=== PATIENT | male | born 1945 | race Caucasian/White ===

== ENCOUNTER 2020-01-08 14:56 | Inpatient (IN) | payer MEDICARE, OTHER ==
[2020-01-08] MEDS ORDERED: NS 0.9% 1000 ML** 1,000 ML IV ONE (15:00)
[2020-01-08] MEDS ORDERED: Cefepime 1 GM in Dextrose(*) 1 GM/50 ML BAG IV ONE (15:00)
--- NOTE | 2020-01-08 15:03 | ED ---
Respiratory - HPI Summary HPI Summary: This patient is a 74 y/o male presenting to [facility] via EMS from [facility] for worsening SOB and AMS. EMS reports patient fell approximately 2 weeks ago and sustained a right sided rib fracture. EMS states patient was then discharged to [facility] for rehab and 2 days ago patient was found to have pneumonia. Per EMS patient is normally alert and oriented x3 and today patient became minimally responsive and hypoxic. EMS reports patient is able to respond and open his eyes to his name. PMHx: COPD, hypernatremia. Medications reviewed. Allergies noted. HPI IS LIMITED DUE TO LEVEL 5 CAVEAT - AMS - History of Current Complaint Stated Complaint: PNEUMONIA PER EMS Hx Obtained From: EMS Hx From Patient Unobtainable Due To: Altered Mental Status Onset/Duration: Lasting Days, Still Present, Worse Since - today Current Severity: Moderate Aggravating Factor(s): Nothing Alleviating Factor(s): Nothing Associated Signs and Symptoms: SOB - Allergy/Home Medications Home Medications: Home Medications Acetaminophen [Tylenol Extra Strength] 1,000 mg PO TID PRN 01/08/20 [History Confirmed 01/08/20] Albuterol HFA INHALER* [Ventolin HFA Inhaler*] 2 puff INH Q4H PRN 01/08/20 [ History Confirmed 01/08/20] Amoxicillin/Clavulanate TAB* [Augmentin TAB 875*] 875 mg PO BID 01/08/20 [ History Confirmed 01/08/20] Azithromycin TAB* [Zithromax TAB (Z-MAKAYLA) 250 mg #6 tabs] 250 mg PO DAILY [History Confirmed 01/08/20] Baclofen TAB* [Lioresal TAB*] 10 mg PO TID PRN 01/08/20 [History Confirmed 01/07] Calcium Carbonate CHEW TAB* [Tums*] 1,000 mg PO QID 01/08/20 [History Confirmed 01/08/20] Guaifenesin/Dextromethorphan [Mucinex Dm ER 600-30 mg Tablet] 1 tab PO Q12HR [History Confirmed 01/08/20] Ipratropium/Albuterol Sulfate [Iprat-Albut 0.5-3(2.5) mg/3 ml] 3 ml INH QID [History Confirmed 01/08/20] Lidocaine [Lidoderm] 2 each TOPICAL QAM 01/08/20 [History Confirmed 01/08/20] Melatonin (NF) 3 mg PO BEDTIME 01/08/20 [History Confirmed 01/08/20] Metoclopramide TAB* [Reglan TAB*] 5 mg PO ACHS 01/08/20 [History Confirmed 01/07] Metolazone TAB* [Zaroxolyn TAB*] 2.5 mg PO DAILY 01/08/20 [History Confirmed ] Misoprostol TAB* [Cytotec TAB*] 200 mcg PO QID 01/08/20 [History Confirmed 01/07] Multivitamins/Minerals TAB* [Theragran/minerals TAB*] 1 tab PO DAILY 01/08/20 [ History Confirmed 01/08/20] Omeprazole CAP (NF) [Prilosec CAP* 20 MG] 20 mg PO BID 01/08/20 [History Confirmed 01/08/20] Oxycodone TAB(NF) [Oxycodone HCl 10 MG] 10 mg PO Q6H PRN 01/08/20 [History Confirmed 01/08/20] Sennosides/Docusate Sodium [Senna Plus 8.6-50 mg Tablet] 2 tab PO DAILY [History Confirmed 01/08/20] Sucralfate TAB* [Carafate*] 1 gm PO ACHS 01/08/20 [History Confirmed 01/08/20] Tamsulosin CAP* [Flomax CAP*] 0.8 mg PO QPM 01/08/20 [History Confirmed 01/08/20 ] Umeclidinium 62.5 MDI(NF) [Incruse ELLIPTA MDI (NF)] 1 puff INH DAILY 01/08/20 [ History Confirmed 01/08/20] predniSONE 10 mg TAB [Deltasone 10 MG TAB*] 30 mg PO DAILY 01/08/20 [History Confirmed 01/08/20] PMH/Surg Hx/FS Hx/Imm Hx Endocrine/Hematology History: Reports: Other Endocrine/Hematological Disorders - hypernatremia Respiratory History: Reports: Hx Chronic Obstructive Pulmonary Disease (COPD) - Family History Known Family History: Positive: Unknown - due to level 5 caveat - AMS Family History: Mother with colorectal cancer. - Social History Alcohol Use: Unknown due to level 5 caveat - AMS Smoking Status (MU): Unknown if Ever Smoked - due to level 5 caveat - AMS Review of Systems - ROS Summary Review of Systems Summary: ROS IS LIMITED DUE TO LEVEL 5 CAVEAT - AMS Negative: Fever Respiratory: Other - POSITIVE: hypoxic Positive: Shortness Of Breath Neurological/Mental Status: Other - POSITIVE: minimally responsive, AMS All Other Systems Reviewed And Are Negative: No Physical Exam - Summary Physical Exam Summary: Constitutional: Well-developed, Well-nourished. (-) Distressed Skin: Warm, Dry HENT: Normocephalic; Atraumatic Eyes: Conjunctiva normal Neck: Musculoskeletal ROM normal neck. (-) JVD, (-) Stridor, (-) Tracheal deviation Cardio: Rhythm regular, rate normal, Heart sounds normal; Intact distal pulses; The pedal pulses are 2+ and symmetric. Radial pulses are 2+ and symmetric. (-) Murmur Pulmonary/Chest wall: Coarse breath sounds throughout. Tachypneic with supraclavicular retractions. Abd: Soft, (-) tenderness, (-) Distension, (-) Guarding, (-) Rebound Musculoskeletal: (-) Edema Lymph: (-) Cervical adenopathy Neuro: Patient is able to respond to his name and answers some questions periodically but nothing outside that. Psych: Deferred Triage Information Reviewed: Yes Vital Signs On Initial Exam: Initial Vitals Temp Pulse Resp BP Pulse Ox 98.6 F 97 24 142/96 97 01/08/20 15:08 01/08/20 15:08 01/08/20 15:08 01/08/20 15:08 01/08/20 15:08 Vital Signs Reviewed: Yes Completion Of Physical Exam Limited Due To: Level 5 - AMS Procedures - Sedation Patient Received Moderate/Deep Sedation with Procedure: No - Intubation Time of Intubation: 16:02 - Using glidescope inserted 8.0 ET tube Intubation Method: orotracheal Tube Size (cm): 8.0 Breath Sounds after Intubation: equal Intubation Complications: no complications Post Intubation Xray: Yes - post color change visualized on CO2 meter, confirmed with chest XR. Progress/Xray Impression: 20mg Etomidate,Rocuronium 100mg used for ASI. Sedated with Propofol after Diagnostics - Laboratory Result Diagrams: 01/08/20 15:00 01/08/20 15:00 Lab Statement: Any lab studies that have been ordered have been reviewed, and results considered in the medical decision making process. - Radiology Chest XR Radiology Interpretation Completed By: Radiologist Summary of Radiographic Findings: IMPRESSION: 1. Displaced right second through sixth rib fractures. No large pneumothorax. 2. No focal airspace opacification. 3. Cardiomegaly. Dr. Dorado has reviewed this report. Chest XR s/p intubation Radiology Interpretation Completed By: Radiologist Summary of Radiographic Findings: IMPRESSION: 1. The endotracheal tube terminates at the zoe. Recommend pulling back approximately 3 cm. 2. Right rib fractures as above. No large pneumothorax. Discussed with ordering provider at 4:51 PM on January 08, 2020. - EKG 15:37 Cardiac Rate: Tachycardia - at 100 bpm EKG Rhythm: Sinus Tachycardia Summary of EKG Findings: EKG at 1537 shows sinus tachycardia at a rate of 100 bpm. No obvious ischemic changes. This EKG was interpreted and reviewed by ED physician. Re-Evaluation - Re-Evaluation First Eval Re-Evaluation Time: 15:22 Change: Worse Comment: Patient is desatting on 4L O2 via nasal cannula. Patient is now on oxymask 10L. We will start vapotherm. Second Eval Re-Evaluation Time: 15:47 Comment: Dr. Figueroa, endless track vehicle supervisor, at bedside. Third Eval Re-Evaluation Time: 15:51 Comment: PCO2 comes back 102. Will intubate. Disposition - Course Course Of Treatment: Patient is here for worsening respiratory and mental status. Patient was diagnosed with pneumonia 2 days ago after suffering rib fractures recently. Upon arrival, patient was on 4 L nasal cannula. Patient could respond to his name but did not answer most questions. Patient desatted at one point and was placed on an oxy mask. Patient had a chest x-ray performed which showed multiple rib fractures with no pneumothorax or obvious pneumonia. Patient's ABG returned with a PCO2 of 102. The decision at this point intubate patient due to his mental status and hypercapnia. Patient was successfully intubated. Patient received cefepime empirically. Patient was admitted to the ICU - Diagnoses Provider Diagnoses: Pneumonia, Hypoxemia, Altered mental status, Hypernatremia, COPD (chronic obstructive pulmonary disease), Fracture of multiple ribs of right side - Physician Notifications Discussed Care Of Patient With: Hung Figueroa Time Discussed With Above Provider: 15:26 Instructed by Provider To: Other - Discussed the case with Dr. Figueroa, endless track vehicle supervisor, who will come see patient. [1549] Dr. Figueroa accepts the patient to the ICU. - Critical Care Time Critical Care Time: 30-74 min - 52 minutes outside of procedures Discharge ED - Sign-Out/Discharge Documenting (check all that apply): Patient Departure - Admit to ICU All imaging exams completed and their final reports reviewed: Yes - Discharge Plan Condition: Critical Disposition: ADMITTED TO [facility] - Billing Disposition and Condition Condition: CRITICAL Disposition: Admitted to [facility] - Attestation Statements Document Initiated by Juan Ramon: Yes Documenting Scribe: Heather Flood Provider For Whom Juan Ramon is Documenting (Include Credential): Vishal Dorado MD Scribe Attestation: Heather Ma, scribed for Vishal Dorado MD on 01/08/20 at 1705. Scribe Documentation Reviewed: Yes Provider Attestation: The documentation as recorded by the Heather bowen accurately reflects the service I personally performed and the decisions made by , Vishal Dorado MD Status of Scribe Document: Viewed
[2020-01-08 15:13] LABS: ABS Lymphocytes 0.7 10^3/ul (1.0-4.8); ABS Monocytes 0.5 10^3/ul (0-0.8); ABS Neutrophils 14.6 10^3/ul (1.5-7.7); Hematocrit 50 % (42-52); Hemoglobin 16.1 g/dL (14.0-18.0); Lymphocyte % 4.3 %; Mean Corpuscular HGB Conc 32 g/dL (31-36); Mean Corpuscular Hemoglobin 32 pg (27-31); Mean Corpuscular Volume 100 fL (80-94); Platelet Count 294 10^3/uL (150-450); Red Blood Count 5.03 10^6 /uL (4.18-5.48); Red Cell Distribution Width 14 % (10-15); White Blood Count 15.7 10^3/uL (3.5-10.8)
[2020-01-08 15:46] LABS: Urine Appearance Cloudy; Urine Bilirubin Negative (Negative); Urine Blood 1+ (Negative); Urine Color Amber; Urine Glucose Negative (Negative); Urine Ketones Trace (Negative); Urine Nitrite Negative (Negative); Urine Protein 2+(100 mg/dL) (Negative); Urine Specific Gravity 1.029 (1.010-1.030); Urine Urobilinogen Negative (Negative)
[2020-01-08 15:48] LABS: Urine Bacteria Absent (Absent); Urine Red Blood Cell Absent (Absent); Urine White Blood Cell Absent (Absent)
[2020-01-08] MEDS ORDERED: Rocuronium* 10 MG/ML VIAL IV ONE (15:52)
[2020-01-08] MEDS ORDERED: Propofol* 100 ML IV ONE ×2 (15:52→17:56)
[2020-01-08] MEDS ORDERED: Etomidate* 2 MG/ML 10 ML VIAL IV ONE (15:52)
[2020-01-08 16:02] LABS: ALT 34 U/L (7-52); AST 40 U/L (13-39); Albumin 3.6 g/dL (3.2-5.2); Albumin/Globulin Ratio 1.2 (1-3); Alkaline Phosphatase 160 U/L (34-104); Anion Gap 6 mmol/L (2-11); BUN/Creatinine Ratio 39.8 (8-20); Blood Urea Nitrogen 35 mg/dL (6-24); C Reactive Protein 24.54 mg/L (<8.01); CO2 Carbon Dioxide 38 mmol/L (22-32); Calcium 8.9 mg/dL (8.6-10.3); Chloride 101 mmol/L (101-111); EGFR Non-African American 85.1 (>60); Globulin 3.1 g/dL (2-4); Glucose 160 mg/dL (70-100); Potassium 4.7 mmol/L (3.5-5.0); Sodium 145 mmol/L (135-145); Total Protein 6.7 g/dL (6.4-8.9)
[2020-01-08 16:06] LABS: Troponin I 0.06 ng/mL (<0.03)
[2020-01-08] MEDS ORDERED: Albuterol/Ipratropium NEB.SOL* Albuterol 2.5 MG/Ipratropium 0.5 MG 3 ML INH PRN (16:16)
[2020-01-08] MEDS: methylPREDNISolone SOD 40 MG* 1 ML VIAL IV SCH (17:22)
[2020-01-08] MEDS: Chlorhexidine MOUTHWASH 0.12%* 15 ML UDC TOPICAL SCH ×3 (17:22→23:51)
[2020-01-08] MEDS: Enoxaparin(*) 40 MG/0.4 ML SYR SUBCUT SCH (17:22)
--- NOTE | 2020-01-08 17:47 | HP ---
H&P (Free Text) History and Physical: HISTORY AND PHYSICAL ADMISSION DATE: 01/08/20 ATTENDING PHYSICIAN: Dr. Hung Figueroa CHIEF COMPLAINT: AMS, worsening SOB LEVEL 5 CAVEAT D/T MENTAL STATUS HPI: 74M with only known medical history of COPD, hypernatremia, BPH, constipation, and frequent falls, was sent from [facility] on 01/08/20 for worsening SOB and altered mental status. All information is obtained from chart since patient is unresponsive. According to his chart, he was recently discharged from [facility] on 01/02 after a fall with subsequent multiple rib fractures. He was discharged to [facility] for subacute rehab and was doing well until early AM on 01/07 when he complained that he did not feel well. He was diagnosed with PNA on 01/05. His mental status started declining around 10am and was unresponsive by 1pm. He was given 1L bolus at rehab and sent to ED. Upon arrival in ED, he was noticed to be unresponsive, VBG showed CO2 102 and initial impression of chest xray showed possibly LLL infiltrate. He was then intubated and received another 1L fluid bolus. ROS: ROS unable to be obtained secondary to altered mental status PMHx: 1. COPD 2. hypernatremia 3. BPH 4. Constipation 5. Frequent falls PSHx: unable to attain Family History: unable to attain Social History: unable to attain Allergies: unable to attain Home Medications: Acetaminophen [Tylenol Extra Strength] 1,000 mg PO TID PRN 01/08/20 [History Confirmed 01/08/20] Albuterol HFA INHALER* [Ventolin HFA Inhaler*] 2 puff INH Q4H PRN 01/08/20 [ History Confirmed 01/08/20] Amoxicillin/Clavulanate TAB* [Augmentin TAB 875*] 875 mg PO BID 01/08/20 [ History Confirmed 01/08/20] Azithromycin TAB* [Zithromax TAB (Z-MAKAYLA) 250 mg #6 tabs] 250 mg PO DAILY [History Confirmed 01/08/20] Baclofen TAB* [Lioresal TAB*] 10 mg PO TID PRN 01/08/20 [History Confirmed 01/07] Calcium Carbonate CHEW TAB* [Tums*] 1,000 mg PO QID 01/08/20 [History Confirmed 01/08/20] Guaifenesin/Dextromethorphan [Mucinex Dm ER 600-30 mg Tablet] 1 tab PO Q12HR [History Confirmed 01/08/20] Ipratropium/Albuterol Sulfate [Iprat-Albut 0.5-3(2.5) mg/3 ml] 3 ml INH QID [History Confirmed 01/08/20] Lidocaine [Lidoderm] 2 each TOPICAL QAM 01/08/20 [History Confirmed 01/08/20] Melatonin (NF) 3 mg PO BEDTIME 01/08/20 [History Confirmed 01/08/20] Metoclopramide TAB* [Reglan TAB*] 5 mg PO ACHS 01/08/20 [History Confirmed 01/07] Metolazone TAB* [Zaroxolyn TAB*] 2.5 mg PO DAILY 01/08/20 [History Confirmed ] Misoprostol TAB* [Cytotec TAB*] 200 mcg PO QID 01/08/20 [History Confirmed 01/07] Multivitamins/Minerals TAB* [Theragran/minerals TAB*] 1 tab PO DAILY 01/08/20 [ History Confirmed 01/08/20] Omeprazole CAP (NF) [Prilosec CAP* 20 MG] 20 mg PO BID 01/08/20 [History Confirmed 01/08/20] Oxycodone TAB(NF) [Oxycodone HCl 10 MG] 10 mg PO Q6H PRN 01/08/20 [History Confirmed 01/08/20] Sennosides/Docusate Sodium [Senna Plus 8.6-50 mg Tablet] 2 tab PO DAILY [History Confirmed 01/08/20] Sucralfate TAB* [Carafate*] 1 gm PO ACHS 01/08/20 [History Confirmed 01/08/20] Tamsulosin CAP* [Flomax CAP*] 0.8 mg PO QPM 01/08/20 [History Confirmed 01/08/20 ] Umeclidinium 62.5 MDI(NF) [Incruse ELLIPTA MDI (NF)] 1 puff INH DAILY 01/08/20 [ History Confirmed 01/08/20] predniSONE 10 mg TAB [Deltasone 10 MG TAB*] 30 mg PO DAILY 01/08/20 [History Confirmed 01/08/20] Vitals: Vital Signs 01/08/20 01/08/20 01/08/20 14:56 15:08 15:27 Temperature 98.6 F Pulse Rate 98 97 100 Respiratory 24 Rate Blood Pressure 142/96 142/96 (mmHg) O2 Sat by Pulse 99 97 99 Oximetry 01/08/20 01/08/20 01/08/20 15:44 15:59 16:00 Temperature 98.2 F 99.9 F 99.9 F Pulse Rate 98 98 97 Respiratory 32 Rate Blood Pressure 133/87 130/88 (mmHg) O2 Sat by Pulse 98 98 98 Oximetry 01/08/20 16:19 Temperature 100.0 F Pulse Rate 97 Respiratory Rate Blood Pressure 136/96 (mmHg) O2 Sat by Pulse 100 Oximetry Intake and Output Last 24 Hours 01/06/20 01/07/20 01/08/20 01/09/20 06:59 06:59 06:59 06:59 Weight 200 lb Vent: Infusions: fluid bolus Current Medications: Albuterol/Ipratropium (Duoneb (Albuterol 2.5 Mg/Ipratropium 0.5 Mg)) 1 neb INH Q6H PRN PRN Reason: SOB/WHEEZING Enoxaparin Sodium (Lovenox(*)) 40 mg SUBCUT Q24H HAILE Propofol (Diprivan*) 100 mls @ 2.722 mls/hr IV .PER PROTOCOL ONE; Protocol Stop: 01/10/20 04:36 Cefepime HCl (Maxipime 1 Gm In Dextrose Duplex (*)) 1 gm in 50 mls @ 100 mls/ hr IV Q12H HAILE Methylprednisolone Sodium Succinate (Solu-Medrol 40 Mg) 40 mg IV Q12H HAILE Pantoprazole Sodium (Protonix Iv*) 40 mg IV DAILY HAILE Physical Exam: Constitutional: unresponsive, no distress, no diaphoresis Head: normocephalic, atraumatic Eyes: no pallor, no icterus ENT: moist mucous membranes Neck: soft, supple, no jvd, no stridor CVS: normal rate, regular, no murmur Chest/Resp: bilateral air entry, diminished throughout but unable to accurately assess d/t poor quality isolation stethescope, no rhales, no wheeze, no rhonchi , no acc muscle use. Copious amounts of thick white sputum Abdomen/GI: soft, nontender, nondistended, BS+ Ext/Msk: warm, pulses+, no edema Skin: intact, warm Neuro: unresponsive, moving all extremities Labs: Laboratory Results - last 24 hr 01/08/20 01/08/20 01/08/20 13:30 15:00 15:00 WBC 15.7 H RBC 5.03 Hgb 16.1 Hct 50 MCV 100 H MCH 32 H MCHC 32 RDW 14 Plt Count 294 MPV 8.0 Neut % (Auto) 92.6 Lymph % (Auto) 4.3 [place] % (Auto) 2.9 Eos % (Auto) 0.0 Baso % (Auto) 0.2 Absolute Neuts (auto) 14.6 H Absolute Lymphs (auto) 0.7 L Absolute Monos (auto) 0.5 Absolute Eos (auto) 0.0 Absolute Basos (auto) 0.0 Absolute Nucleated RBC 0.0 Nucleated RBC % 0.0 VBG pH VBG pCO2 VBG pO2 VBG HCO3 VBG O2 Saturation VBG Base Excess Sodium Potassium Chloride Carbon Dioxide Anion Gap BUN Creatinine Est GFR ( Amer) Est GFR (Non-Af Amer) BUN/Creatinine Ratio Glucose Lactic Acid 0.9 Calcium Total Bilirubin AST ALT Alkaline Phosphatase Troponin I C-Reactive Protein B-Natriuretic Peptide Total Protein Albumin Globulin Albumin/Globulin Ratio Urine Color Ana Urine Appearance Cloudy Urine pH 5.0 Ur Specific [place] 1.029 Urine Protein 2+(100 mg/dl) A Urine Ketones Trace A Urine Blood 1+ A Urine Nitrate Negative Urine Bilirubin Negative Urine Urobilinogen Negative Ur Leukocyte Esterase Negative Urine WBC (Auto) Absent Urine RBC (Auto) Absent Urine Bacteria Absent Urine Glucose Negative 01/08/20 01/08/20 01/08/20 15:00 15:00 15:15 WBC RBC Hgb Hct MCV MCH MCHC RDW Plt Count MPV Neut % (Auto) Lymph % (Auto) [place] % (Auto) Eos % (Auto) Baso % (Auto) Absolute Neuts (auto) Absolute Lymphs (auto) Absolute Monos (auto) Absolute Eos (auto) Absolute Basos (auto) Absolute Nucleated RBC Nucleated RBC % VBG pH 7.24 L VBG pCO2 102 H VBG pO2 42.0 VBG HCO3 33.4 H VBG O2 Saturation 72.0 VBG Base Excess 11.8 H Sodium 145 Potassium 4.7 Chloride 101 Carbon Dioxide 38 H Anion Gap 6 BUN 35 H Creatinine 0.88 Est GFR ( Amer) 103.0 Est GFR (Non-Af Amer) 85.1 BUN/Creatinine Ratio 39.8 H Glucose 160 H Lactic Acid Calcium 8.9 Total Bilirubin 0.80 AST 40 H ALT 34 Alkaline Phosphatase 160 H Troponin I 0.06 H* C-Reactive Protein 24.54 H B-Natriuretic Peptide > 1300 H Total Protein 6.7 Albumin 3.6 Globulin 3.1 Albumin/Globulin Ratio 1.2 Urine Color Urine Appearance Urine pH Ur Specific [place] Urine Protein Urine Ketones Urine Blood Urine Nitrate Urine Bilirubin Urine Urobilinogen Ur Leukocyte Esterase Urine WBC (Auto) Urine RBC (Auto) Urine Bacteria Urine Glucose Imaging: Reports for chest xrays are unavailable at this time Assessment: 74M with only known medical history of COPD, hypernatremia, BPH, constipation, and frequent falls, was sent from [facility] on 01/08/20 for worsening SOB and altered mental status. All information is obtained from chart since patient is unresponsive. According to his chart, he was recently discharged from [facility] on 01/02 after a fall with subsequent multiple rib fractures. He was discharged to [facility] for subacute rehab and was doing well until early AM on 01/07 when he complained that he did not feel well. He was diagnosed with PNA on 01/05. His mental status started declining around 10am and was unresponsive by 1pm. He was given 1L bolus at rehab and sent to ED. Upon arrival in ED, he was noticed to be unresponsive, VBG showed CO2 102 and initial impression of chest xray showed possibly LLL infiltrate. He was then intubated and received another 1L fluid bolus. - Acute hypoxic and hypercapnic respiratory failure - Pneumonia - COPD - Sepsis Plan: Neuro- - Unresponsive: acute. Likely d/t CO2 retention r/t PNA. Intubated. -Delirium prec; avoid BDZ CVS- - HTN: chronic. Hold home medications at this time - Monitor for hypotension -Maintain MAP>65 - BNP >1300 on admission. Will start diuresis with 20mg lasix once Resp- - Intubated 01/07 for acute respiratory failure. - COVID rule out - Chest xray in AM -Wean Fio2 to keep sat>92% -Bronchodilators PRN, Aspiration prec, Pulmonary Toilet -VAP bundle ID- - PNA: acute. Continue cefepime - COVID r/o - Goal temp<101 GI- -Nutrition: NPO, nutrition consult for TF recommendations -GI prophylaxis PPI - Has a history of duodenol ulcer Renal- -strict I/O, replete to keep K>4, Mg>2 -[place] as indicated Heme- - Lovenox for DVT prophylaxis Endo- Maintain BG<200, insulin protocol as needed Musculsk- pressure ulcer prophylaxis. Bedrest. Wounds- none Nutrition- NPO DVT prophylaxis: lovenox GI prophylaxis: PPI [place] Catheter: Disposition: Admit to ICU; Expected LOS>2 midnights; Patient requires Critical Care/ICU for acute hypoxic and hypercapnic respiratory failure, AMS, sepsis Patient Clinical Status: critical Code Status: full Total Critical Care time is 30 minutes
[2020-01-08] MEDS ORDERED: Furosemide IV* 10 MG/ML 2 ML VIAL (20 MG) IV SLOW PU ONE (17:56)
[2020-01-08] MEDS: fentaNYL* 50 MCG/ML 2 ML VIAL (100 MCG VIAL) IV SLOW PU PRN (23:51)
[2020-01-09] MEDS: fentaNYL* 50 MCG/ML 2 ML VIAL (100 MCG VIAL) IV SLOW PU PRN ×3 (02:42→09:19)
[2020-01-09] MEDS: Cefepime 1 GM in Dextrose(*) 1 GM/50 ML BAG IV SCH ×2 (02:43→18:10)
[2020-01-09] MEDS: methylPREDNISolone SOD 40 MG* 1 ML VIAL IV SCH ×2 (05:13→18:12)
[2020-01-09] MEDS: Chlorhexidine MOUTHWASH 0.12%* 15 ML UDC TOPICAL SCH ×5 (05:13→20:48)
[2020-01-09] MEDS: Propofol* 100 ML IV SCH ×5 (05:22→23:45)
[2020-01-09 05:40] LABS: ABS Lymphocytes 0.6 10^3/ul (1.0-4.8); ABS Monocytes 0.5 10^3/ul (0-0.8); ABS Neutrophils 9.3 10^3/ul (1.5-7.7); Eosinophil % 0.1 %; Hematocrit 44 % (42-52); Hemoglobin 14.5 g/dL (14.0-18.0); Lymphocyte % 5.9 %; Mean Corpuscular HGB Conc 33 g/dL (31-36); Mean Corpuscular Hemoglobin 33 pg (27-31); Mean Corpuscular Volume 100 fL (80-94); Mean Platelet Volume 8.8 fL (7.4-10.4); Nucleated Red Blood Cells % 0.1; Platelet Count 225 10^3/uL (150-450); Red Cell Distribution Width 14 % (10-15); White Blood Count 10.5 10^3/uL (3.5-10.8)
[2020-01-09 05:56] LABS: BUN/Creatinine Ratio 38.4 (8-20); Calcium 8.3 mg/dL (8.6-10.3); EGFR African American 105.8 (>60); EGFR Non-African American 87.4 (>60); Magnesium 1.6 mg/dL (1.9-2.7); Potassium 3.9 mmol/L (3.5-5.0)
[2020-01-09] MEDS ORDERED: Magnesium Sulf 4 GM/100 ML IV* 4,000 MG/100 ML BAG IVPB ONE (08:00)
[2020-01-09] MEDS ORDERED: Famotidine IV* 10 MG/ML 2 ML (20 mg) IV SLOW PU SCH (09:00)
[2020-01-09] MEDS ORDERED: Furosemide IV* 10 MG/ML 2 ML VIAL (20 MG) IV SLOW PU ONE (09:34)
[2020-01-09] MEDS ORDERED: Furosemide IV* 10 MG/ML 2 ML VIAL (20 MG) ONE (09:38)
[2020-01-09] MEDS: Pantoprazole IV* 40 MG IV SCH (09:45)
[2020-01-09 09:57] LABS: Troponin I 0.04 ng/mL (<0.03)
[2020-01-09 10:17] LABS: Influenza A Molecular Negative (Negative); Influenza B Molecular Negative (Negative)
[2020-01-09] MEDS ORDERED: EPINEPHrine SYR 0.1MG/ML* SYRINGE ONE (15:18)
[2020-01-09] MEDS ORDERED: Magnesium Sulfate IV* 0.5 GM/ML 2 ML VIAL (1 GM) ONE (15:18)
[2020-01-09] MEDS ORDERED: Amiodarone IV VIAL** 50 MG/ML 3 ML (150 MG) VIAL ONE ×2 (15:18)
[2020-01-09] MEDS ORDERED: Norepinephrine 16MCG/ML IVPRE* 0 MCG/0 ML BAG IV ONE (15:21)
[2020-01-09] MEDS ORDERED: fentaNYL* 50 MCG/ML 2 ML VIAL (100 MCG VIAL) ONE (15:50)
[2020-01-09] MEDS ORDERED: fentaNYL* 50 MCG/ML 2 ML VIAL (100 MCG VIAL) IV SLOW PU ONE (15:55)
[2020-01-09 16:14] LABS: ALT 34 U/L (7-52); Albumin 3.4 g/dL (3.2-5.2); Albumin/Globulin Ratio 1.1 (1-3); Alkaline Phosphatase 154 U/L (34-104); BUN/Creatinine Ratio 35.1 (8-20); Blood Urea Nitrogen 33 mg/dL (6-24); CO2 Carbon Dioxide 32 mmol/L (22-32); Calcium 8.8 mg/dL (8.6-10.3); Chloride 99 mmol/L (101-111); EGFR African American 95.5 (>60); EGFR Non-African American 78.9 (>60); Glucose 137 mg/dL (70-100); Magnesium 3.1 mg/dL (1.9-2.7); Sodium 145 mmol/L (135-145); Total Protein 6.4 g/dL (6.4-8.9)
[2020-01-09 16:16] LABS: Anion Gap 14 mmol/L (2-11); Troponin I 0.06 ng/mL (<0.03)
--- NOTE | 2020-01-09 16:43 | HP ---
H&P (Free Text) History and Physical: Full consult will be dictated. Asked to see pt for VT and prolonged QT Pt had VT arrest. I reviewed admission note and NH records. Pt on Zithromax and reglan, both of which can prolong QT. Recent Rib fx, ([place]) Pneumonia COPD, and very high PCO2 this AM Echo prelim: EF 20%, poor RV function. 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 Amiodarone given in code, safest antiarrhythmic Optimizing KCl and Mag Advanced directives need to be reviewed, full code and very high risk patient.
--- NOTE | 2020-01-09 17:23 | ECHO ---
*[facility]* [place] [address] Fax #: [phone] Transthoracic Echocardiogram Patient: Hung Jane : 1945 Study Date: 01/09/2020 Age: 74 Gender: M HR: 67 bpm Height: 70 in /177.8 cm BSA: 1.98 m^2 Weight: 175.6 lb /79.8 kg BMI: 25.3 kg/m^2 *Community Service Technician: * Jeanie Yarbrough [facility] *Referring Physician: * Hung Figueroa *Reading Physician: * Desi Keith MD Indications: Cardiac Arrest. History: Chronic obstructive pulmonary disease. Risk factors: Hypertension. Conclusions Summary: - Left ventricle: The cavity size is mildly dilated. Wall thickness is mildly increased. Systolic function is severely reduced. The estimated ejection fraction is 10-15%. Features are consistent with a pseudonormal left ventricular filling pattern, with concomitant abnormal relaxation and increased filling pressure (grade 2 diastolic dysfunction). - Right ventricle: Systolic function is moderately to severely reduced. - Left atrium: The atrium is moderately dilated. - Right atrium: The atrium is severely dilated. - Mitral valve: There is trace to mild regurgitation. - Aortic valve: The valve is trileaflet. The leaflets are mildly thickened. There is trace regurgitation. - Tricuspid valve: There is trace to mild regurgitation. - Aorta: The ascending aorta internal dimension in the A-P direction, maximal systolic dimension is 3.9 cm. - Ascending aorta: The ascending aorta is mildly dilated. - Pericardium, extracardiac: Epicardial or extracardiac material adjacent to the posterior pericadium noted on long axis view. - Pulmonary arteries: Systolic pressure is mildly increased. Pulmonary artery pressure may be underestimated The peak pressure during systole by Doppler is 34.0 mm Hg. - No prior echocardiogram available to compare. Study data: Transthoracic echocardiogram. Procedure: Transthoracic echocardiography was performed. Image quality was good. Complete 2D, spectral Doppler, and color flow Doppler. Location: Bedside. Patient status: Inpatient. Patient room number: ICU-11. Rhythm: Normal sinus rhythm with PVC's. Findings Left ventricle: The cavity size is mildly dilated. Wall thickness is mildly increased. Systolic function is severely reduced. The estimated ejection fraction is 10-15%. Wall motion is normal; there are no regional wall motion abnormalities. Features are consistent with a pseudonormal left ventricular filling pattern, with concomitant abnormal relaxation and increased filling pressure (grade 2 diastolic dysfunction). Right ventricle: The cavity size is moderately to severely dilated. Systolic function is moderately to severely reduced. Systolic pressure is mildly increased. Left atrium: The atrium is moderately dilated. Right atrium: The atrium is severely dilated. Mitral valve: The leaflets are mildly thickened. There is no evidence of stenosis. There is trace to mild regurgitation. Aortic valve: The valve is trileaflet. The leaflets are mildly thickened. Cusp separation is normal. There is no evidence of stenosis. There is trace regurgitation. Tricuspid valve: The leaflets are normal thickness. There is no evidence of stenosis. There is trace to mild regurgitation. Pulmonic valve: The leaflets are normal thickness. There is no evidence of stenosis. There is trace regurgitation. Aorta: Aortic root: The aortic root is appears normal. Ascending aorta: The ascending aorta is mildly dilated. Aortic arch: The aortic arch is poorly visualized. Pericardium: A trace pericardial effusion is identified posterior to the heart. There is no evidence of hemodynamic compromise. Measuring 0.2 cm in PLAX, at the basal level of the left ventricular inferolateral wall. There is a pleural effusion present. Epicardial or extracardiac material adjacent to the posterior pericadium noted on long axis view. Pulmonary arteries: The main pulmonary artery is normal-sized. Systolic pressure is mildly increased. Pulmonary artery pressure may be underestimated Systemic veins: Inferior vena cava: The vessel is dilated. There is (< 50%) respiratory change in the IVC dimension. Measurements Left ventricle Value Ref Aortic valve Value Ref JARAD, LAX (H) 6.0 cm 4.2 - 5.8 Bolivar diam, ED 2.1 cm ----- ESD, LAX (H) 5.5 cm 2.5 - 4.0 Peak v, S 1.09 m/sec ----- FS, LAX (L) 7 % 25 - 43 VTI, S 19.7 cm ----- PW, ED, LAX (H) 1.1 cm 0.6 - 1.0 Mean grad, S 2.0 mm Hg ----- FS (L) 7 % 25 - 43 Peak grad, S 5.0 mm Hg ----- Mid-wall FS 4 % LVOT/AV, VTI ratio 0.71 ----- PW, ED (H) 1.1 cm 0.6 - 1.0 E', lat bolivar, TDI (L) 6.3 cm/sec >=10.0 Mitral valve Value Ref E/e', lat bolivar, 12 Peak E 0.73 m/sec ----- TDI Peak A 0.6 m/sec ----- E', med bolivar, TDI (L) 3.4 cm/sec >=7.0 Decel time 189 ms --- -- E/e', med bolivar, 21 Peak grad, D 2.1 mm Hg ----- TDI Peak E/A ratio 1.2 ----- E', avg, TDI 4.9 cm/sec E/e', avg, TDI (H) 15 <=14 Pulmonic valve Value Ref Peak v, S 0.97 m/sec ----- LVOT Value Ref Peak grad, S 4.0 mm Hg ----- Peak yolis, S 0.75 m/sec VTI, S 14.0 cm Tricuspid valve Value Ref Mean grad, S 1 mm Hg TR peak v 2.4 m/sec <=2.8 Peak RV-RA grad, S 23 mm Hg ----- Ventricular septum Value Ref IVS, ED (H) 1.2 cm 0.6 - 1.0 Aortic root Value Ref Root diam 3.4 cm <4.1 Right ventricle Value Ref JARAD, LAX 4.9 cm Ascending aorta Value Ref JARAD minor ax, A4C (H) 5.1 cm 1.9 - 3.5 AAo AP diam, S 3.9 cm ----- mid Pressure, S 38 mm Hg Pulmonary artery Value Ref Pressure, S 34.0 mm Hg ----- Left atrium Value Ref AP dim, ES (H) 5.00 cm 3.00 - Inferior vena cava Value Ref 4.00 Diam 2.4 cm ----- ML dim, A4C 5.2 cm SI dim, A4C 6.6 cm Vol/bsa, ES, 1-p (H) 44 ml/m^2 12 - 37 A4C Vol/bsa, ES, A/L (H) 46 ml/m^2 16 - 34 Right atrium Value Ref SI dim, ES (H) 6.2 cm 3.4 - 5.3 ML dim, ES, A4C (H) 6.8 cm 2.6 - 4.4 Estimated RAP 15 mm Hg Legend: (L) and (H) estefania values outside specified reference range. Prepared and electronically signed by Desi Keith MD 01/09/2020 17:22
--- NOTE | 2020-01-09 17:51 | PRO ---
PROCEDURE NOTE: DATE OF PROCEDURE: 01/09/20 PROCEDURE: Insertion of a triple-lumen central venous catheter. INDICATION/DESCRIPTION OF PROCEDURE: This is a 74-year-old male admitted with a pneumonia and who mahajan s suffered a cardiac arrest and required a central line for infusion of vasopressors and other agents . A triple lumen size 7-Croatian central venous catheter was inserted in the left internal jugular vei n under ultrasound guidance and catheter was advanced without difficulty. There were no obvious comp lications and a postinsertion chest x-ray was ordered. [id number]/[facility] #: [id number]
[2020-01-09] MEDS ORDERED: Norepinephrine 16MCG/ML IVPRE* 4,000 MCG/250 ML BAG IV SCH (18:00)
[2020-01-09] MEDS: Enoxaparin(*) 40 MG/0.4 ML SYR SUBCUT SCH (18:12)
[2020-01-09] MEDS: Amiodarone 360 MG IVPREMIX* 360 MG/200 ML BAG IV ONE ×2 (18:12→20:25)
--- NOTE | 2020-01-09 18:41 | PN ---
Progress Note - Progress Note Date of Service: 01/09/20 Note: Progress Note -- Critical Care 24 hour events/significant events: ROS: ROS unable to be obtained secondary to intubated/sedated Tele: sinus eleanor Vitals: Vital Signs 01/08/20 01/08/20 01/08/20 18:38 18:46 19:00 Temperature 100.0 F 100.0 F 100.2 F Pulse Rate 61 75 63 Respiratory 20 Rate Blood Pressure 126/69 114/83 118/64 (mmHg) O2 Sat by Pulse 99 100 97 Oximetry 01/08/20 01/08/20 01/08/20 19:15 19:30 19:45 Temperature 100.2 F 100.0 F 99.7 F Pulse Rate 62 60 59 Respiratory Rate Blood Pressure 111/61 111/61 112/63 (mmHg) O2 Sat by Pulse 95 95 95 Oximetry 01/08/20 01/08/20 01/08/20 20:00 20:15 20:31 Temperature 99.5 F 99.3 F 99.3 F Pulse Rate 59 59 69 Respiratory 20 Rate Blood Pressure 120/69 120/65 116/89 (mmHg) O2 Sat by Pulse 98 96 100 Oximetry 01/08/20 01/08/20 01/08/20 20:45 20:58 21:00 Temperature 99.5 F 99.5 F Pulse Rate 60 61 Respiratory 20 Rate Blood Pressure 132/73 121/68 (mmHg) O2 Sat by Pulse 96 95 Oximetry 01/08/20 01/08/20 01/08/20 21:15 21:30 21:45 Temperature 99.3 F 99.1 F 99.1 F Pulse Rate 60 61 60 Respiratory Rate Blood Pressure 124/71 112/64 119/69 (mmHg) O2 Sat by Pulse 93 93 94 Oximetry 01/08/20 01/08/20 01/08/20 22:00 22:06 22:15 Temperature 99.0 F 99.1 F 99.1 F Pulse Rate 61 61 Respiratory 20 Rate Blood Pressure 130/73 113/63 (mmHg) O2 Sat by Pulse 96 94 Oximetry 01/08/20 01/08/20 01/08/20 22:30 22:45 23:00 Temperature 99.3 F 99.3 F 99.1 F Pulse Rate 61 61 62 Respiratory 20 Rate Blood Pressure 113/65 105/64 108/59 (mmHg) O2 Sat by Pulse 93 94 94 Oximetry 01/08/20 01/08/20 01/08/20 23:15 23:30 23:45 Temperature 99.1 F 99.1 F 99.1 F Pulse Rate 63 65 64 Respiratory Rate Blood Pressure 110/63 102/61 111/62 (mmHg) O2 Sat by Pulse 94 93 93 Oximetry 01/08/20 01/09/20 01/09/20 23:51 00:00 00:13 Temperature 99.3 F 99.3 F Pulse Rate 65 65 Respiratory 20 20 Rate Blood Pressure 130/87 (mmHg) O2 Sat by Pulse 97 93 Oximetry 01/09/20 01/09/20 01/09/20 00:15 00:30 00:45 Temperature 99.3 F 99.5 F 99.5 F Pulse Rate 65 64 63 Respiratory Rate Blood Pressure 103/60 105/61 108/59 (mmHg) O2 Sat by Pulse 93 94 93 Oximetry 01/09/20 01/09/20 01/09/20 01:00 01:15 01:30 Temperature 99.5 F 99.5 F 99.5 F Pulse Rate 63 63 63 Respiratory 20 Rate Blood Pressure 108/58 102/61 103/61 (mmHg) O2 Sat by Pulse 93 93 93 Oximetry 01/09/20 01/09/20 01/09/20 01:45 02:00 02:15 Temperature 99.5 F 99.5 F 99.5 F Pulse Rate 54 60 64 Respiratory 20 Rate Blood Pressure 108/56 109/59 104/55 (mmHg) O2 Sat by Pulse 93 93 93 Oximetry 01/09/20 01/09/20 01/09/20 02:31 02:42 02:45 Temperature 99.7 F 99.7 F Pulse Rate 63 65 Respiratory 22 Rate Blood Pressure 124/69 108/57 (mmHg) O2 Sat by Pulse 93 93 Oximetry 01/09/20 01/09/20 01/09/20 03:00 03:15 03:30 Temperature 99.5 F 99.1 F 99.0 F Pulse Rate 61 57 58 Respiratory 20 Rate Blood Pressure 105/55 91/51 111/56 (mmHg) O2 Sat by Pulse 94 94 93 Oximetry 01/09/20 01/09/20 01/09/20 03:45 04:00 04:02 Temperature 98.8 F 98.6 F 98.6 F Pulse Rate 59 55 55 Respiratory 20 Rate Blood Pressure 94/53 110/73 (mmHg) O2 Sat by Pulse 94 95 94 Oximetry 01/09/20 01/09/20 01/09/20 04:15 04:30 04:45 Temperature 98.6 F 98.4 F 98.4 F Pulse Rate 57 58 37 Respiratory Rate Blood Pressure 110/59 111/60 130/63 (mmHg) O2 Sat by Pulse 94 94 96 Oximetry 01/09/20 01/09/20 01/09/20 05:00 05:13 05:15 Temperature 98.4 F 98.8 F Pulse Rate 60 61 Respiratory 20 20 Rate Blood Pressure 126/68 124/85 (mmHg) O2 Sat by Pulse 95 98 Oximetry 01/09/20 01/09/20 01/09/20 05:30 05:45 06:00 Temperature 98.8 F 98.8 F 98.8 F Pulse Rate 62 59 60 Respiratory 20 Rate Blood Pressure 103/57 129/63 115/59 (mmHg) O2 Sat by Pulse 94 96 97 Oximetry 01/09/20 01/09/20 01/09/20 06:15 06:30 06:45 Temperature 98.8 F 99.0 F 98.8 F Pulse Rate 57 58 58 Respiratory Rate Blood Pressure 131/65 116/53 109/56 (mmHg) O2 Sat by Pulse 100 100 Oximetry 01/09/20 01/09/20 01/09/20 07:00 07:15 07:30 Temperature 98.8 F 98.6 F 98.4 F Pulse Rate 56 55 Respiratory 20 Rate Blood Pressure 110/57 113/56 124/60 (mmHg) O2 Sat by Pulse 100 100 Oximetry 01/09/20 01/09/20 01/09/20 07:45 08:00 08:15 Temperature 98.4 F 98.2 F 98.4 F Pulse Rate 55 54 Respiratory 20 Rate Blood Pressure 118/55 136/70 129/61 (mmHg) O2 Sat by Pulse 100 100 Oximetry 01/09/20 01/09/20 01/09/20 08:30 08:43 08:46 Temperature 98.4 F 98.4 F 98.6 F Pulse Rate 54 56 59 Respiratory Rate Blood Pressure 141/75 133/66 134/70 (mmHg) O2 Sat by Pulse 99 98 98 Oximetry 01/09/20 01/09/20 01/09/20 09:00 09:15 09:19 Temperature 98.6 F 98.8 F Pulse Rate 59 58 Respiratory 20 20 Rate Blood Pressure 140/71 134/69 (mmHg) O2 Sat by Pulse 99 99 Oximetry 01/09/20 01/09/20 01/09/20 09:30 09:45 10:00 Temperature 98.8 F 98.6 F 98.2 F Pulse Rate 57 56 53 Respiratory 20 Rate Blood Pressure 113/59 126/58 116/62 (mmHg) O2 Sat by Pulse 97 98 97 Oximetry 01/09/20 01/09/20 01/09/20 10:30 10:45 11:00 Temperature 97.7 F 97.5 F 97.3 F Pulse Rate 54 51 57 Respiratory 20 Rate Blood Pressure 105/55 126/66 136/82 (mmHg) O2 Sat by Pulse 96 97 97 Oximetry 01/09/20 01/09/20 01/09/20 11:15 11:30 11:45 Temperature 97.3 F 97.5 F 97.5 F Pulse Rate 58 52 52 Respiratory Rate Blood Pressure 129/82 120/60 112/57 (mmHg) O2 Sat by Pulse 98 97 96 Oximetry 01/09/20 01/09/20 01/09/20 12:00 12:15 12:30 Temperature 97.5 F 97.3 F 97.5 F Pulse Rate 48 54 51 Respiratory 20 Rate Blood Pressure 133/67 104/59 129/74 (mmHg) O2 Sat by Pulse 97 95 97 Oximetry 01/09/20 01/09/20 01/09/20 12:45 13:00 13:15 Temperature 97.5 F 97.5 F 97.5 F Pulse Rate 52 51 55 Respiratory 20 Rate Blood Pressure 113/58 127/65 111/58 (mmHg) O2 Sat by Pulse 95 97 96 Oximetry 01/09/20 01/09/20 01/09/20 13:30 13:45 14:00 Temperature 97.3 F 97.3 F 97.5 F Pulse Rate 51 53 51 Respiratory 20 Rate Blood Pressure 111/59 120/62 128/69 (mmHg) O2 Sat by Pulse 96 98 98 Oximetry 01/09/20 15:50 Temperature Pulse Rate Respiratory 26 Rate Blood Pressure (mmHg) O2 Sat by Pulse Oximetry Intake and Output Last 24 Hours 01/07/20 01/08/20 01/09/20 01/10/20 06:59 06:59 06:59 06:59 Intake Total 1134.3 268 Output Total 1670 1040 Balance -535.7 -772 Weight 176 lb 2.389 oz Intake: IV Fluids 1007.5 110 Magnesium 110 NS (0.9%) 7.5 IVPB 50 NS (0.9%) 50 Medicated IV 76.8 158 CC - Propofol/Diprivan 76.8 158 Oral 0 Output: Urine 185 Winston 1485 1040 Vent: Infusions: propofol Medications: Albuterol/Ipratropium (Duoneb (Albuterol 2.5 Mg/Ipratropium 0.5 Mg)) 1 neb INH Q6H PRN PRN Reason: SOB/WHEEZING Chlorhexidine Gluconate (Peridex Mouth Wash 0.12%*) 15 ml TOPICAL Q4H [facility] Last Admin: 01/09/20 18:11 Dose: 15 ml Enoxaparin Sodium (Lovenox(*)) 40 mg SUBCUT Q24H [facility] Last Admin: 01/09/20 18:12 Dose: 40 mg Fentanyl Citrate (Fentanyl*) 50 mcg IV SLOW PU Q2H PRN PRN Reason: PAIN Last Admin: 01/09/20 09:19 Dose: 50 mcg Cefepime HCl (Maxipime 1 Gm In Dextrose Duplex (*)) 1 gm in 50 mls @ 100 mls/ hr IV Q12H [facility] Last Admin: 01/09/20 18:10 Dose: 100 mls/hr Propofol (Diprivan*) 100 mls @ 2.722 mls/hr IV .PER PROTOCOL [facility]; Protocol Last Admin: 01/09/20 14:18 Dose: 20.6 mls/hr Norepinephrine Bitartrate (Levophed 16 Mcg/Ml Premix*) 4,000 mcg in 250 mls @ 18.75 mls/hr IV .PER PROTOCOL [facility]; Protocol Last Admin: 01/09/20 18:13 Dose: 18.75 mls/hr Amiodarone HCl (Nexterone 360 Mg/200 Ml Ivpremix*) 360 mg in 200 mls @ 33.333 mls/hr IV ONCE ONE Stop: 01/09/20 23:29 Last Admin: 01/09/20 18:12 Dose: 33.333 mls/hr Amiodarone HCl (Nexterone 360 Mg/200 Ml Ivpremix*) 360 mg in 200 mls @ 16.667 mls/hr IV .SEE PROTOCOL [facility] Methylprednisolone Sodium Succinate (Solu-Medrol 40 Mg) 40 mg IV Q12H [facility] Last Admin: 01/09/20 18:12 Dose: 40 mg Pantoprazole Sodium (Protonix Iv*) 40 mg IV DAILY [facility] Last Admin: 01/09/20 09:45 Dose: 40 mg Physical Exam: Constitutional: awake, alert, no distress, no diaphoresis Head: normocephalic, atraumatic Eyes: no pallor, no icterus ENT: moist mucous membranes Neck: soft, supple, no jvd, no stridor CVS: normal rate, regular, no murmur Chest/Resp: bilateral air entry, no rhales, no wheeze, no rhonchi, no acc muscle use Abdomen/GI: soft, nontender, nondistended, BS+ Ext/Msk: warm, pulses+, no edema Skin: intact, warm Neuro: awake, alert, orientedx3, moving all extremities, no gross focal deficit Labs: Laboratory Results - last 24 hr 01/09/20 01/09/20 01/09/20 05:30 05:30 09:23 WBC 10.5 RBC 4.40 Hgb 14.5 Hct 44 MCV 100 H MCH 33 H MCHC 33 RDW 14 Plt Count 225 MPV 8.8 Neut % (Auto) 88.6 Lymph % (Auto) 5.9 Henderson % (Auto) 5.2 Eos % (Auto) 0.1 Baso % (Auto) 0.2 Absolute Neuts (auto) 9.3 H Absolute Lymphs (auto) 0.6 L Absolute Monos (auto) 0.5 Absolute Eos (auto) 0.0 Absolute Basos (auto) 0.0 Absolute Nucleated RBC 0.0 Nucleated RBC % 0.1 Sodium 146 H Potassium 3.9 Chloride 102 Carbon Dioxide 33 H Anion Gap 11 BUN 33 H Creatinine 0.86 Est GFR ( Amer) 105.8 Est GFR (Non-Af Amer) 87.4 BUN/Creatinine Ratio 38.4 H Glucose 113 H Calcium 8.3 L Magnesium 1.6 L Total Bilirubin AST ALT Alkaline Phosphatase Troponin I 0.04 H* Total Protein Albumin Globulin Albumin/Globulin Ratio Influenza A (Rapid) Influenza B (Rapid) 01/09/20 01/09/20 09:50 15:46 WBC RBC Hgb Hct MCV MCH MCHC RDW Plt Count MPV Neut % (Auto) Lymph % (Auto) Henderson % (Auto) Eos % (Auto) Baso % (Auto) Absolute Neuts (auto) Absolute Lymphs (auto) Absolute Monos (auto) Absolute Eos (auto) Absolute Basos (auto) Absolute Nucleated RBC Nucleated RBC % Sodium 145 Potassium TNP Chloride 99 L Carbon Dioxide 32 Anion Gap 14 H BUN 33 H Creatinine 0.94 Est GFR ( Amer) 95.5 Est GFR (Non-Af Amer) 78.9 BUN/Creatinine Ratio 35.1 H Glucose 137 H Calcium 8.8 Magnesium 3.1 H Total Bilirubin 1.80 H AST TNP ALT 34 Alkaline Phosphatase 154 H Troponin I 0.06 H* Total Protein 6.4 Albumin 3.4 Globulin 3.0 Albumin/Globulin Ratio 1.1 Influenza A (Rapid) Negative Influenza B (Rapid) Negative Imaging: Chest xray 01/07: displaced right second through sixth rib fractures. no large pneumothorax, no focal airspace opacification. Cardiomegaly Assessment: 74M with only known medical history of COPD, hypernatremia, BPH, constipation, and frequent falls, was sent from [facility] on 01/08/20 for worsening SOB and altered mental status. All information is obtained from chart since patient is unresponsive. According to his chart, he was recently discharged from [facility] on 01/02 after a fall with subsequent multiple rib fractures. He was discharged to [facility] for subacute rehab and was doing well until early AM on 01/07 when he complained that he did not feel well. He was diagnosed with PNA on 01/05. His mental status started declining around 10am and was unresponsive by 1pm. He was given 1L bolus at rehab and sent to ED. Upon arrival in ED, he was noticed to be unresponsive, VBG showed CO2 102 and initial impression of chest xray showed possibly LLL infiltrate. He was then intubated and received another 1L fluid bolus. 01/08: Vfib arrest s/p CPR and ROSC within 2 minutes - Acute hypoxic and hypercapnic respiratory failure - Pneumonia - COPD - Sepsis - Vfib arrest - Prolonged qtc likely from outpatient reglan and azithromycin Plan: Neuro- - Patient is waking this morning on propofol. -Delirium prec; avoid BDZ CVS- - Vital signs stable in AM. Not requiring pressors. Around 1530, there was v- fib on the monitor. An ABC was called and CPR immediately begun. Given 1 of epi. Pulse returned but then HR tachy into 150's. Was bolused and started on amio drip. Central line was placed. After a couple hours, patient woke and follows commands -Maintain MAP>65 Resp- -Wean Fio2 to keep sat>92% -Bronchodilators PRN, Aspiration prec, Pulmonary Toilet -VAP bundle - According to patient's , patient fell a couple weeks ago on a hill, likely on mud or wet grass. That is how he sustained rib fractures. He was sent to [facility]. Will need to obtain records. ID- - Currently being treated with cefepime for suspected PNA - Goal temp<101 GI- -Nutrition: Waiting TF recommendations -GI prophylaxis PPI - Hx of duodenol ulcer Renal- -strict I/O, replete to keep K>4, Mg>2 -winston as indicated Heme- - lovenox for subq heparin Endo-Maintain BG<200, insulin protocol as needed Musculsk- pressure ulcer prophylaxis. Bedrest. Wounds- none Nutrition- waiting on TF recommendations DVT prophylaxis: lovenox GI prophylaxis: PPI Central Line: [facility]. Awaiting confirmatory xray Winston Catheter: continue Disposition: Patient requires Critical Care/ICU for acute hypoxic/hypercapnic respiratory failure, vfib arrest Patient clinical status: critical Code Status: full Called and updated his . She will be facetiming with him Total Critical Care time is 60 minutes
[2020-01-09 19:18] LABS: AST Redraw 43 U/L (13-39); Potassium Redraw 3.4 mmol/L (3.5-5.0)
[2020-01-09 19:30] LABS: Troponin I 0.12 ng/mL (<0.03)
[2020-01-09] MEDS ORDERED: Lorazepam PYXIS KEY PRN (20:48)
[2020-01-09] MEDS ORDERED: LORazepam INJ* 2 MG/ML 1 ML VIAL IV PUSH PRN (20:48)
--- NOTE | 2020-01-09 20:52 | CONS ---
CC: The Judo Instructor; Dr. Jae Holcomb, [facility]* CARDIOLOGY CONSULTATION: DATE OF CONSULT: 01/09/20 REASON FOR CONSULTATION: Long QT and ventricular tachycardia. HISTORY OF PRESENT ILLNESS: Mr. Jane was unable to provide any history at the time of my exam, status post VT arrest. I obtained history from [facility] records and hospital records from 2005 admission. According to [facility] document, the patient on 01/07/20 appeared to have normal mentation. On 01/08/20, he had hypernatremia and hydro clysis was ordered, D5W with normal mentation. This was at 1:30 a.m. By 10:18 a.m., the patient was lethargic, stated he did not feel well, oxygen saturation 92% on 3 L nasal cannula, and by 12:42, the patient was not himself, mumbling, unable to hold a cup. Inhalers and antibiotics given, clysis was continued and the patient 's lethargy was documented. On 01/08/20 at 1:56, they documented continued decline, increasing lethargy, oxygen saturation 91% on 3 L nasal cannula, and carbon dioxide level 42% and transferred to the emergency room at 1:56 p.m. The patient was admitted yesterday. -Chest x-ray showed displaced right ribs. No pneumothorax and cardiomegaly. - -ECG on arrival showed normal sinus rhythm with a corrected QT interval of 476 milliseconds and diffuse nonspecific changes. -In the emergency room, venous gas showed CO2 of 102. -The patient was intubated in the emergency room. He was unresponsive in the emergency room. -Dr. Figueroa's interpretation of the chest x-ray showed left lower lobe infiltrate. -He was given intravenous fluid, placed on COVID precautions. Overnight, the patient developed tachyarrhythmias and I saw him with an ongoing ventricular tachycardia arrest. PAST MEDICAL HISTORY: The patient has a past medical history of: 1. COPD, on chronic steroids. 2. Obstructive sleep apnea. 3. Hypertension. 4. Sheridan esophagus. 5. BPH. 6. Dysphagia. 7. Reflux. 8. Repeated falls. 9. History of multiple rib fractures, right side. 10. Psoriasis. 11. Constipation, chronic. 12. Duodenal ulcer, status post hemorrhage and perforation 2004. 13. Pneumonia (on antibiotics at the time of admission). 14. Pulmonary hypertension with PA pressure 60 to 65 mmHg on echo in 2004 as well as moderate left ventricular hypertrophy, and at that time left ventricular ejection fraction 60% to 65%. PAST SURGICAL HISTORY: Includes: 1. Surgical repair of perforated pyloric ulcer with partial gastrectomy . Prolonged stay with tracheostomy placed. 2. Tracheostomy 2004. MEDICATIONS: Outpatient medications based on the list [facility] sent include: 1. Cytotec 200 mg q.i.d. 2. Lidocaine 5% topical patch. 3. Extra strength Tylenol 1000 mg t.i.d. 4. Melatonin 3 mg p.o. q.h.s. 5. Tubersol intradermal injection. 6. Ipratropium/albuterol nebulizer solution 4 times a day. 7. Mucinex. 8. Oxycodone 10 mg a day. 9. Ventolin 90 mcg 2 puffs q.4 hours p.r.n. 10. Calcium carbonate 200 mg 2 tabs q.i.d. 11. Omeprazole 40 mg a day. 12. Senna. 13. Prednisone 10 mg a day q.a.m. for 5 days. 14. Ellipta 62.5 mcg inhalation powder daily. 15. Baclofen 10 mg t.i.d. 16. Multivitamin with minerals. 17. Reglan 5 mg q.i.d. 18. Metolazone 2.5 mg daily. 19. Sucralfate 1 g q.i.d. 20. Tamsulosin 0.4 mg a day. 21. Augmentin 875/125 one tablet q.12 hours. 22. Zithromax 250 mg once daily for 4 days started 01/08/20. ALLERGIES: He has no known drug allergies. FAMILY HISTORY: Positive for stomach cancer with his father, stroke, and atherosclerotic heart disease with his mother. SOCIAL HISTORY: Obtained from old records. He has a but I had not had the opportunity to talk with her. Residing in [facility] following rib fractures. Old records at [facility] document a history of smoking 1 to 3 packs a day since the age of 23, unsure if and when he stopped and significant alcohol intake in the past. 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 REVIEW OF SYSTEMS: Unable to be obtained. See [facility] documentation summarized above for presentation. PHYSICAL EXAM: The patient is 5 feet 11 inches, weighs 176 pounds. Blood pressure 111/59; pulses was 50; respiratory rate 51, on a ventilator; oxygen saturation 96%. Ventilator settings not available to me at the time of this dictation. General appearance: Elderly male, slim, lying in bed, on a ventilator, appearing chronically ill, unable to get a psychological exam. Neurologically, on propofol and sedated, responds some to noxious. Mucous membranes were moist. Neck: Hard to examine, but I did not appreciate increased JVP. Breath sounds were diminished. Coronary: S1, S2 regular. Abdomen: No hepatomegaly. Lower extremities were free of edema. DIAGNOSTIC STUDIES/LAB DATA: Echocardiogram done post code showed left ventricular ejection fraction 10% to 15%, [id number] right ventricular hypokinesis. No significant valvular disease, severe by atrial enlargement, and PA pressure is not significantly elevated. Labs: White count on arrival 15.7 on 01/08/20. Today, white count 10.5. Hematocrit 44, platelets 225. Sodium this morning 146, potassium 3.9, chloride 102, bicarb 33, BUN 33, creatinine 0.86. Glucose 113. AST 40, ALT 34, alk phos 160. Troponin #1 0.06, #2 0.04, #3 0.06. CRP of 24. BNP greater than 1300. Urinalysis: From 01/08/20, pH , 2+ protein, trace ketones, 1+ blood , negative for esterase or nitrite or bacteria. Serology was negative for Influenza A and B. Venous blood gas, 01/08/20, 1515, shows pH of 7.24, pCO2 102, pO2 42, oxygen saturation 72. EKG from 01/08/20, 1537, shows normal sinus rhythm, 100 beats a minute, QRS axis - 30, normal AV conduction times, QT interval of 476 milliseconds, QT was 369. ECG on 01/09/20 at 10:00 this morning shows sinus bradycardia 54 beats a minute , QRS axis +60, short MT interval, and a markedly prolonged QT interval. I measured 680 milliseconds, machine measures 430 milliseconds. Inverted T-waves across the precordial leads are diffuse, nonspecific ST flattening. EKG at 1529, 01/09/20 (post code) shows sinus tachycardia 108 beats a minute, QRS axis -45. Normal AV conductions, corrected QT interval 499 milliseconds, QT 372 milliseconds. My personally measured QT interval at 400 to 440 milliseconds. At 1531, 12-lead ECG shows QT interval of 528 milliseconds, mild upsloping ST depression in addition to poor R wave progression and nonspecific ST changes. ASSESSMENT AND PLAN: In summary, Hung Jane is a 74-year-old gentleman admitted with severe respiratory distress, hypoxemic and hypercarbic, intubated with possible pneumonia based on chest x-ray. He had markedly prolonged QT interval, VT arrest, and a severe biventricular cardiomyopathy of uncertain duration. For the patient's ventricular tachycardia and prolonged QT interval, he could have had a severe cardiomyopathy for some time based on biatrial enlargement. The etiology uncertain now but baseline EKGs suggest he has had prior anterior wall and inferior wall MIs. With drinking history, there could be nonischemic elements, and based on severe pulmonary hypertension in the past, the right ventricle could represent cor pulmonale from his COPD and prior prolonged ventilation and requirement of tracheostomy. For the prolonged QT, he was on Zithromax and Reglan. Those are the 2 drugs identified with pharmacy. These have been stopped and should stay off and QT interval may improve gradually. The patient's hypercarbia could contribute to QT interval. Ventilator settings at the base status should be optimized. Electrolytes should be optimized particularly Magnesium and potassium. For the severe biventricular cardiomyopathy, he is a very high risk patient and at risk for recurrent ventricular tachycardia. If blood pressure tolerates, pure beta-blockers, JOANNE or ARB could be added. Supporting the patient's pneumonia and COPD will help stabilize the heart, if depressed EF is new/acute, profound hypoxemia and hypercarbia could have caused and may reverse. I think we need advance directives in my opinion, at least in his state today he would not be a good candidate for a defibrillator, but we need to have discussions with the patient's family, and re evaluate is ventricular function and overall health based on hospital course. There was an extracardiac material seen on the echo posteriorly, this may be his pneumonia but consider a CT scan with his recent rib fractures as well, he could have an organized hemothorax. Getting old records from other facilities, regular physician prior to admission to [facility] could be extremely helpful. Further recommendations will be made pending his hospital course, but in my opinion palliative and hospice care option should be considered in this very high risk, very ill patient. [id number]/[facility] #: [id number] JOEY
[2020-01-09] MEDS: KCL 20 MEQ/100 ML IVPREMIX* 20 MEQ/100 ML BAG IV SCH ×2 (21:11→23:34)
[2020-01-09] MEDS ORDERED: Magnesium Sulfate 4 GM IV IVPB ONE (21:30)
[2020-01-09 23:09] LABS: Troponin I 0.14 ng/mL (<0.03)
[2020-01-09 23:26] LABS: BUN/Creatinine Ratio 43.5 (8-20); Calcium 8.1 mg/dL (8.6-10.3); EGFR African American 107.2 (>60); EGFR Non-African American 88.6 (>60); Magnesium 3.2 mg/dL (1.9-2.7); Potassium 3.9 mmol/L (3.5-5.0)
[2020-01-10] MEDS ORDERED: Amiodarone 360 MG IVPREMIX* 360 MG/200 ML BAG IV SCH
[2020-01-10] MEDS: KCL 20 MEQ/100 ML IVPREMIX* 20 MEQ/100 ML BAG IV SCH (01:46)
[2020-01-10] MEDS: Chlorhexidine MOUTHWASH 0.12%* 15 ML UDC TOPICAL SCH ×7 (01:46→23:24)
[2020-01-10] MEDS: Cefepime 1 GM in Dextrose(*) 1 GM/50 ML BAG IV SCH ×2 (04:22→15:08)
[2020-01-10] MEDS: methylPREDNISolone SOD 40 MG* 1 ML VIAL IV SCH ×2 (04:31→16:13)
[2020-01-10 05:00] LABS: ABS Lymphocytes 0.4 10^3/ul (1.0-4.8); ABS Monocytes 0.4 10^3/ul (0-0.8); ABS Neutrophils 10.3 10^3/ul (1.5-7.7); Hematocrit 46 % (42-52); Hemoglobin 15.1 g/dL (14.0-18.0); Lymphocyte % 3.5 %; Mean Corpuscular HGB Conc 33 g/dL (31-36); Mean Corpuscular Hemoglobin 32 pg (27-31); Mean Corpuscular Volume 97 fL (80-94); Mean Platelet Volume 9.1 fL (7.4-10.4); Platelet Count 217 10^3/uL (150-450); Red Blood Count 4.72 10^6 /uL (4.18-5.48); Red Cell Distribution Width 14 % (10-15); White Blood Count 11.1 10^3/uL (3.5-10.8)
[2020-01-10 05:14] LABS: ALT 33 U/L (7-52); AST 40 U/L (13-39); Albumin 2.8 g/dL (3.2-5.2); Albumin/Globulin Ratio 1.1 (1-3); Alkaline Phosphatase 127 U/L (34-104); Anion Gap 8 mmol/L (2-11); BUN/Creatinine Ratio 46.3 (8-20); Blood Urea Nitrogen 37 mg/dL (6-24); CO2 Carbon Dioxide 33 mmol/L (22-32); Chloride 102 mmol/L (101-111); Globulin 2.5 g/dL (2-4); Glucose 130 mg/dL (70-100); Magnesium 3.3 mg/dL (1.9-2.7); Potassium 4.2 mmol/L (3.5-5.0); Sodium 143 mmol/L (135-145); Total Protein 5.3 g/dL (6.4-8.9)
[2020-01-10 05:53] LABS: TSH (Thyroid Stimulating Horm) 4.05 mcIU/mL (0.34-5.60)
[2020-01-10 05:56] LABS: Free T4 0.73 ng/dL (0.61-1.12)
[2020-01-10] MEDS: Pantoprazole IV* 40 MG IV SCH (08:15)
[2020-01-10] MEDS ORDERED: Atropine SYRINGE* 0.1 MG/ML 10 ML SYRINGE (1 MG) ONE (08:54)
[2020-01-10] MEDS ORDERED: Atropine 1MG/ML INJ* 1 ML VIAL IV PUSH ONE ×2 (09:21→09:50)
[2020-01-10] MEDS: DOPamine 800 MG/250 ML IVPREM* 800 MG/250 ML ML CENTR SCH ×2 (09:30→10:30)
[2020-01-10] MEDS ORDERED: CALCIUM GLUCONATE 1GM/50ML NS 1 GM/50 ML BAG IV ONE ×2 (10:30→15:00)
[2020-01-10] MEDS ORDERED: CALCIUM GLUCONATE* 1 GM/10 ML VIAL (in Pyxis) ONE (11:00)
[2020-01-10] MEDS: Propofol* 100 ML IV SCH (11:06)
[2020-01-10] MEDS: KCL 10 MEQ/50 ML IVPREMIX* 10 MEQ/50 ML BAG IV SCH ×2 (11:09→12:28)
[2020-01-10] MEDS ORDERED: fentaNYL INFUSION 50 MCG/ML* 2,500 MCG/50 ML BAG IV SCH ×2 (12:00→15:02)
[2020-01-10] MEDS: DOBUTamine 2000 MCG/ML IVPREMX 500 MG/250 ML BAG IV SCH (14:04)
[2020-01-10] MEDS: Enoxaparin(*) 40 MG/0.4 ML SYR SUBCUT SCH (16:13)
--- NOTE | 2020-01-10 18:29 | PN ---
Date of Service: 01/10/20 Critical Care Services: More episodes of polymorphic VT today, usually preceded by bradycardia. Was started on dobutamine to increase heart rate - has been stable since then. Vital Signs: Temp Pulse Resp BP SpO2 FiO2 98.2 F 75 20 118/72 100 50 Physical Exam: Gen:Awake and oriented HEENT:Pupils midposition and reactive. Orotracheal tube in place. Lungs: Clear Cardiac: Irreg rhythm Abdomen:Not distended Extremities: No cyanosis or edema Fluid Balance (Past 24 Hours): 01/09/20 01/10/20 06:59 06:59 Intake Total 1134.3 1542 Output Total 1670 1510 Balance -535.7 32 Weight 176 lb 2.389 oz 179 lb 10.828 oz Intake: IV Fluids 1007.5 177 ABX KCL in Sterile Water Magnesium 110 NS (0.9%) 7.5 67 IVPB 50 497 ABX 65 KCL in Sterile Water 322 Magnesium 110 NS (0.9%) 50 Medicated IV 76.8 868 CC - Amiodarone 269 CC - Dobutamine CC - Dopamine CC - Norepinephrine/ 259 Levophed CC - Propofol/Diprivan 76.8 340 Oral 0 Output: Urine 185 Crum 1485 1510 Labs: 01/09/20 01/09/20 01/09/20 18:45 22:00 23:00 WBC RBC Hgb Hct MCV MCH MCHC RDW Plt Count MPV Neut % (Auto) Lymph % (Auto) Nicholas % (Auto) Eos % (Auto) Baso % (Auto) Absolute Neuts (auto) Absolute Lymphs (auto) Absolute Monos (auto) Absolute Eos (auto) Absolute Basos (auto) Absolute Nucleated RBC Nucleated RBC % Sodium 143 Potassium 3.4 L 3.9 Chloride 100 L Carbon Dioxide 33 H Anion Gap 10 BUN 37 H Creatinine 0.85 Est GFR ( Amer) 107.2 Est GFR (Non-Af Amer) 88.6 BUN/Creatinine Ratio 43.5 H Glucose 154 H Calcium 8.1 L Ionized Calcium Magnesium 3.2 H Total Bilirubin AST 43 H ALT Alkaline Phosphatase Troponin I 0.12 H* 0.14 H* Total Protein Albumin Globulin Albumin/Globulin Ratio TSH Free T4 01/10/20 01/10/20 01/10/20 04:30 04:30 06:19 WBC 11.1 H RBC 4.72 Hgb 15.1 Hct 46 MCV 97 H MCH 32 H MCHC 33 RDW 14 Plt Count 217 MPV 9.1 Neut % (Auto) 92.7 Lymph % (Auto) 3.5 Nicholas % (Auto) 3.7 Eos % (Auto) 0.0 Baso % (Auto) 0.1 Absolute Neuts (auto) 10.3 H Absolute Lymphs (auto) 0.4 L Absolute Monos (auto) 0.4 Absolute Eos (auto) 0.0 Absolute Basos (auto) 0.0 Absolute Nucleated RBC 0.0 Nucleated RBC % 0.0 Sodium 143 Potassium 4.2 Chloride 102 Carbon Dioxide 33 H Anion Gap 8 BUN 37 H Creatinine 0.80 Est GFR ( Amer) 115.0 Est GFR (Non-Af Amer) 95.0 BUN/Creatinine Ratio 46.3 H Glucose 130 H Calcium 8.0 L Ionized Calcium 0.94 L Magnesium 3.3 H Total Bilirubin 1.20 H AST 40 H ALT 33 Alkaline Phosphatase 127 H Troponin I 0.10 H* Total Protein 5.3 L Albumin 2.8 L Globulin 2.5 Albumin/Globulin Ratio 1.1 TSH 4.05 Free T4 0.73 01/10/20 14:12 WBC RBC Hgb Hct MCV MCH MCHC RDW Plt Count MPV Neut % (Auto) Lymph % (Auto) Nicholas % (Auto) Eos % (Auto) Baso % (Auto) Absolute Neuts (auto) Absolute Lymphs (auto) Absolute Monos (auto) Absolute Eos (auto) Absolute Basos (auto) Absolute Nucleated RBC Nucleated RBC % Sodium Potassium Chloride Carbon Dioxide Anion Gap BUN Creatinine Est GFR ( Amer) Est GFR (Non-Af Amer) BUN/Creatinine Ratio Glucose Calcium Ionized Calcium 0.98 L Magnesium Total Bilirubin AST ALT Alkaline Phosphatase Troponin I Total Protein Albumin Globulin Albumin/Globulin Ratio TSH Free T4 Nutrition: None Impression: Recurrent torsades with prolonged QT - possible culprits are azithromycin and propofol (both d/c'd) Plan: 1. Continue dobutamine to maintain heart rate 80-100 bpm. 2. Attempt wean from ventilator tomorrow. Critical Care Time: 90 minutes (including time devoted to CPR).
[2020-01-11] MEDS: Cefepime 1 GM in Dextrose(*) 1 GM/50 ML BAG IV SCH ×2 (02:51→16:00)
[2020-01-11] MEDS: Chlorhexidine MOUTHWASH 0.12%* 15 ML UDC TOPICAL SCH ×4 (04:00→17:32)
[2020-01-11] MEDS: methylPREDNISolone SOD 40 MG* 1 ML VIAL IV SCH ×2 (04:00→17:52)
[2020-01-11 04:43] LABS: Anion Gap 7 mmol/L (2-11); BUN/Creatinine Ratio 47.4 (8-20); Blood Urea Nitrogen 45 mg/dL (6-24); CO2 Carbon Dioxide 35 mmol/L (22-32); Calcium 8.2 mg/dL (8.6-10.3); Chloride 101 mmol/L (101-111); EGFR African American 94.3 (>60); EGFR Non-African American 77.9 (>60); Glucose 134 mg/dL (70-100); Potassium 4.1 mmol/L (3.5-5.0); Sodium 143 mmol/L (135-145)
[2020-01-11 04:44] LABS: ABS Lymphocytes 0.3 10^3/ul (1.0-4.8); ABS Monocytes 0.7 10^3/ul (0-0.8); Hematocrit 46 % (42-52); Lymphocyte % 2.2 %; Mean Corpuscular HGB Conc 33 g/dL (31-36); Mean Corpuscular Hemoglobin 32 pg (27-31); Mean Corpuscular Volume 98 fL (80-94); Mean Platelet Volume 9.2 fL (7.4-10.4); Platelet Count 201 10^3/uL (150-450); Red Blood Count 4.71 10^6 /uL (4.18-5.48); Red Cell Distribution Width 14 % (10-15); White Blood Count 11.9 10^3/uL (3.5-10.8)
[2020-01-11] MEDS: DOBUTamine 2000 MCG/ML IVPREMX 500 MG/250 ML BAG IV SCH (06:21)
[2020-01-11] MEDS: Pantoprazole IV* 40 MG IV SCH (09:00)
[2020-01-11 10:07] LABS: Troponin I 0.08 ng/mL (<0.03)
[2020-01-11] MEDS ORDERED: Calcium Gluconate INJ* 2 GM in NS 0.9% 100 ML* 100 ML IV ONE (13:15)
--- NOTE | 2020-01-11 13:45 | PN ---
Subjective Date of Service: 01/11/20 Interval History: Patient now extubated and history reviewed. Patient alert and able to discuss pmh. Denies prior CAD but reports decreased exercise tolerance/olson over the past year which he attributes to his COPD. Apparently had a negative evaluation with a assistant manager pt in [place] but records and details not available. No further torasdes. QT improving. Medications Active Medications: Chlorhexidine Gluconate (Peridex Mouth Wash 0.12%*) 15 ml TOPICAL Q4H [facility] Last Admin: 01/11/20 09:00 Dose: 15 ml Enoxaparin Sodium (Lovenox(*)) 40 mg SUBCUT Q24H [facility] Last Admin: 01/10/20 16:13 Dose: 40 mg Fentanyl Citrate (Fentanyl*) 50 mcg IV SLOW PU Q2H PRN PRN Reason: PAIN Last Admin: 01/09/20 09:19 Dose: 50 mcg Cefepime HCl (Maxipime 1 Gm In Dextrose Duplex (*)) 1 gm in 50 mls @ 100 mls/ hr IV Q12H [facility] Last Admin: 01/11/20 02:51 Dose: 100 mls/hr Dobutamine HCl/Dextrose (Dobutamine 2000 Mcg/Ml Ivpremx*) 500 mg in 250 mls @ 6.113 mls/hr IV .PER PROTOCOL [facility]; Protocol Last Admin: 01/11/20 06:21 Dose: 18.7 mls/hr Fentanyl Citrate (Fentanyl Infusion Bag 50 Mcg/Ml 50 Ml) 2,500 mcg in 50 mls @ 0.5 mls/hr IV .PER PROTOCOL [facility]; Protocol Last Admin: 01/10/20 23:24 Dose: 3.5 mls/hr Calcium Gluconate 2 gm/ Sodium (Chloride) 120 mls @ 60 mls/hr IV ONCE ONE Stop: 01/11/20 15:14 Methylprednisolone Sodium Succinate (Solu-Medrol 40 Mg) 40 mg IV Q12H [facility] Last Admin: 01/11/20 04:00 Dose: 40 mg Pantoprazole Sodium (Protonix Iv*) 40 mg IV DAILY [facility] Last Admin: 01/11/20 09:00 Dose: 40 mg Objective Vital Signs: Temp Pulse Resp BP Pulse Ox 98.1 F 83 25 134/77 95 01/11/20 13:15 01/11/20 13:15 01/11/20 13:15 01/11/20 13:15 01/11/20 13:15 Oxygen Devices in Use Now: Nasal Cannula, Endotracheal Tube, Mechanical Ventilator Appearance: comfortable, extubated. Neck: - - No JVD Respiratory: - - rhonchi right base, soft rales left base. Cardiovascular: RRR, No Edema - s1 s2 2/6 homer base. Extremities: No Edema Lines/Tubes/Other Access: Clean, Dry and Intact Peripheral IV, Clean, Dry and Intact Central Line Laboratory Results: 01/11/20 04:10 01/11/20 04:10 Total Bilirubin 1.20 mg/dL (0.2-1.0) H 01/10/20 04:30 AST 40 U/L (13-39) H 01/10/20 04:30 ALT 33 U/L (7-52) 01/10/20 04:30 Alkaline Phosphatase 127 U/L (34-104) H 01/10/20 04:30 B-Natriuretic Peptide > 1300 pg/mL (<=100) H 01/08/20 15:00 Total Protein 5.3 g/dL (6.4-8.9) L 01/10/20 04:30 Albumin 2.8 g/dL (3.2-5.2) L 01/10/20 04:30 Globulin 2.5 g/dL (2-4) 01/10/20 04:30 Albumin/Globulin Ratio 1.1 (1-3) 01/10/20 04:30 TSH 4.05 mcIU/mL (0.34-5.60) 01/10/20 04:30 01/08/20 01/09/20 01/09/20 15:00 09:23 15:46 Troponin I 0.06 H* 0.04 H* 0.06 H* 01/09/20 01/09/20 01/10/20 18:45 22:00 04:30 Troponin I 0.12 H* 0.14 H* 0.10 H* 01/11/20 04:10 Troponin I 0.08 H* EKG Data: nsr with interval improvement in QTC Assessment/Plan S/p VT and torsades suspected acquired QT prolongation due to medications. Improving off QT prolonging meds and on Dobutamine. discussed with Delaney Kothari and Dr. Zarate and the patient. Torsades: SUPPLEment Ca, K, Mag as needed. Wean Dobutamine to 5 mcg/kg/min and reassess QTC Continue to taper as tolerated. Cardiomyopathy Unclear etiology: ? stress cardiomyopathy, ? post arrest Will repeat echo. Consider ACEinhi and beta sophie if EF remains low May require further evaluation for ischemia with a nuclear stress or cath depending on course Old records from [place] ordered. reviewed [place] records. COPD. OLSON may have been due to COPD but cannot rule out CAD/ recheck PASP and rv function. ID as per hospitalist team. Metabolic : history of moderate alcohol use. consider ashwin kirkland. will order banana bab 35+ minutes spent in discussion and coordination of care.
[2020-01-11] MEDS ORDERED: Thiamine INJ* 100 MG, Folic Acid IV* 1 MG, Multiple Vitamin IV ADULT* 10 ML in D5NS 0.9... IV ONE (14:04)
--- NOTE | 2020-01-11 15:08 | ECHO ---
*[facility]* [place] [address] Fax #: [phone] Limited Transthoracic Echocardiogram Patient: Hung Jane : 1945 Study Date: 01/11/2020 Age: 74 Gender: M HR: 67 bpm Height: 71 in /180.3 cm BSA: 2 m^2 Weight: 176.6 lb /80.3 kg BMI: 24.7 kg/m^2 *Medical Office Asst: * Jeanie Yarbrough [facility] *Referring Physician: * Pritesh Lucas MD *Reading Physician: * Pritesh Lucas MD Indications: Cardiomyopathy. History: Chronic obstructive pulmonary disease. Sheridan's Esophagus. Functional status: Not following treatment plan for sleep apnea. Risk factors: Hypertension. Conclusions Summary: - Left ventricle: The cavity size is mildly dilated. Systolic function is severely reduced. The estimated ejection fraction is 15-20%. Minor regional variation with relatively better wall motion in the mid to distal anterior, anteroseptal, apical and mid posterolateral segments. The inferior and inferoseptal segments seem more severely hypokinetic. - Right ventricle: The cavity size is moderately to severely dilated. Systolic function is moderately to severely reduced. - Pulmonary arteries: Systolic pressure is moderately increased. - Similar to the prior study of with perhaps slight improvement in right ventricle and left ventricle function. Study data: Transthoracic echocardiogram, limited study. Procedure: Transthoracic echocardiography was performed. Image quality was good. Location: ICU Patient status: Inpatient. Patient room number: ICU-09. Rhythm: Normal sinus rhythm with PVC's. Patient was on IV Dobutamine during the study. Findings Left ventricle: The cavity size is mildly dilated. Systolic function is severely reduced. The estimated ejection fraction is 15-20%. Severe diffuse hypokinesis. Minor regional variation with relatively better wall motion in the mid to distal anterior, anteroseptal, apical and mid posterolateral segments. The inferior and inferoseptal segments seem more severely hypokinetic. Right ventricle: The cavity size is moderately to severely dilated. Systolic function is moderately to severely reduced. Systolic pressure is moderately increased. Ventricular septum: There is septal flattening of the interventricular septum consistent with RV volume or pressure overload. Pericardium: The amount of pericardial fluid appears to be at the upper limits of normal. Pulmonary arteries: The main pulmonary artery is normal-sized. Systolic pressure is moderately increased. Systemic veins: Inferior vena cava: The vessel is normal in size. There is (>= 50%) respiratory change in the IVC dimension. Measurements Right ventricle Value Ref Pulmonary artery Value Ref Pressure, S 44 mm Hg ----- Pressure, S 44.0 mm Hg ---- Right atrium Value Ref Inferior vena cava Value Ref Estimated RAP 3 mm Hg ----- Diam 1.9 cm ---- Tricuspid valve Value Ref TR peak v (H) 3.2 m/sec <=2.8 Peak RV-RA grad, S 41 mm Hg ----- Legend: (L) and (H) estefania values outside specified reference range. Prepared and electronically signed by Pritesh Lucas MD 01/11/2020 15:07
--- NOTE | 2020-01-11 15:38 | PN ---
Date of Service: 01/11/20 Critical Care Services: Patient has done well today. Weaned and extubated. No further episodes of torsades while on dobutamine. Last QTc = 476 msec Vital Signs: Temp Pulse Resp BP SpO2 FiO2 98.1 F 71 22 138/75 96 45 Physical Exam: Gen:Alert and appropriate HEENT:No facial asymmetry Lungs: Clear Cardiac: Reg rhythm Abdomen: Not distended Extremities:No cyanosis or edema Fluid Balance (Past 24 Hours): 01/09/20 01/10/20 01/11/20 06:59 06:59 06:59 Intake Total 1134.3 1542 312.3 Output Total 1670 1510 1310 Balance -535.7 32 -997.7 Weight 176 lb 2.389 oz 179 lb 10.828 oz 177 lb 11.081 oz Intake: IV Fluids 1007.5 177 60 ABX 30 KCL in Sterile Water 30 Magnesium 110 NS (0.9%) 7.5 67 IVPB 50 497 104 ABX 65 KCL in Sterile Water 322 104 Magnesium 110 NS (0.9%) 50 Medicated IV 76.8 868 148.3 CC - Amiodarone 269 CC - Dobutamine 8.3 CC - Dopamine 30 CC - Norepinephrine/ 259 Levophed CC - Propofol/Diprivan 76.8 340 110 Oral 0 0 Output: NG Tube Drainage Amount 200 Urine 185 Crum 1485 1510 1110 Labs: 01/08/20 01/11/20 01/11/20 14:59 04:10 04:10 WBC 11.9 H RBC 4.71 Hgb 15.0 Hct 46 MCV 98 H MCH 32 H MCHC 33 RDW 14 Plt Count 201 MPV 9.2 Neut % (Auto) 92.3 Lymph % (Auto) 2.2 Otero % (Auto) 5.5 Eos % (Auto) 0.0 Baso % (Auto) 0.0 Absolute Neuts (auto) 11.0 H Absolute Lymphs (auto) 0.3 L Absolute Monos (auto) 0.7 Absolute Eos (auto) 0.0 Absolute Basos (auto) 0.0 Absolute Nucleated RBC 0.0 Nucleated RBC % 0.0 Sodium 143 Potassium 4.1 Chloride 101 Carbon Dioxide 35 H Anion Gap 7 BUN 45 H Creatinine 0.95 Est GFR ( Amer) 94.3 Est GFR (Non-Af Amer) 77.9 BUN/Creatinine Ratio 47.4 H Glucose 134 H Calcium 8.2 L Ionized Calcium Troponin I 0.08 H* COVID-19 PCR Undetected 01/11/20 11:40 WBC RBC Hgb Hct MCV MCH MCHC RDW Plt Count MPV Neut % (Auto) Lymph % (Auto) Otero % (Auto) Eos % (Auto) Baso % (Auto) Absolute Neuts (auto) Absolute Lymphs (auto) Absolute Monos (auto) Absolute Eos (auto) Absolute Basos (auto) Absolute Nucleated RBC Nucleated RBC % Sodium Potassium Chloride Carbon Dioxide Anion Gap BUN Creatinine Est GFR ( Amer) Est GFR (Non-Af Amer) BUN/Creatinine Ratio Glucose Calcium Ionized Calcium 0.94 L Troponin I COVID-19 PCR Studies: ECG Nutrition: Oral diet Impression: Much improved from a cardiac standpoint. Decrease in QT interval could be from a decreased drug effect (e.g., azithromycin) or from rate control with dobutamine. Plan: 1. Wean off dobutamine and check QT interval. 2. Repeat cardiac ECHO Critical Care Time: 45 minutes (including time for extubation).
[2020-01-11] MEDS ORDERED: Baclofen TAB* 10 MG PO PRN (17:34)
[2020-01-11] MEDS: Enoxaparin(*) 40 MG/0.4 ML SYR SUBCUT SCH (17:53)
[2020-01-11] MEDS ORDERED: Heparin 2 UNITS/ML IVPREMIX* 1 ML in NS 0.9% 50 ML* 1 ML IV SCH (18:00)
[2020-01-11] MEDS ORDERED: Metoclopramide TAB* 10 MG PO SCH (21:00)
[2020-01-11] MEDS: Melatonin 3 MG TAB PO PRN (22:36)
[2020-01-11] MEDS: Sucralfate TAB* 1 GM PO SCH (22:36)
[2020-01-12] MEDS: Cefepime 1 GM in Dextrose(*) 1 GM/50 ML BAG IV SCH (03:14)
[2020-01-12] MEDS: methylPREDNISolone SOD 40 MG* 1 ML VIAL IV SCH (05:42)
[2020-01-12 06:20] LABS: BUN/Creatinine Ratio 57.1 (8-20); EGFR Non-African American 125.2 (>60); Potassium 4.3 mmol/L (3.5-5.0)
[2020-01-12 06:21] LABS: Calcium 7.8 mg/dL (8.6-10.3); EGFR African American 151.5 (>60)
[2020-01-12] MEDS: Sucralfate TAB* 1 GM PO SCH ×4 (07:42→20:12)
[2020-01-12] MEDS: Pantoprazole IV* 40 MG IV SCH (08:33)
[2020-01-12] MEDS: Multivitamins/Minerals TAB PO SCH (08:33)
--- NOTE | 2020-01-12 10:36 | PN ---
Subjective Date of Service: 01/12/20 Interval History: Patient denies sob. Has atypical cp at left chest worse with inspiration and touch attributed to defibrillation. No further torasdes. QT improving but still prolonged off dobutamine. EF remains severely reduced on echo 01.11.20 Medications Active Medications: Acetaminophen (Tylenol Tab*) 650 mg PO Q6H PRN PRN Reason: PAIN - MILD Enoxaparin Sodium (Lovenox(*)) 40 mg SUBCUT Q24H [facility] Last Admin: 01/11/20 17:53 Dose: 40 mg Fentanyl Citrate (Fentanyl*) 50 mcg IV SLOW PU Q2H PRN PRN Reason: PAIN Last Admin: 01/09/20 09:19 Dose: 50 mcg Heparin Sodium (Porcine) (Heparin Flush Picc/Ml/Cvc(*)) 1 - 3 ml FLUSH 0600, 1800 [facility]; Protocol Last Admin: 01/12/20 05:42 Dose: 3 ml Cefepime HCl (Maxipime 1 Gm In Dextrose Duplex (*)) 1 gm in 50 mls @ 100 mls/ hr IV Q12H [facility] Last Admin: 01/12/20 03:14 Dose: 100 mls/hr Dobutamine HCl/Dextrose (Dobutamine 2000 Mcg/Ml Ivpremx*) 500 mg in 250 mls @ 6.113 mls/hr IV .PER PROTOCOL [facility]; Protocol Last Admin: 01/11/20 06:21 Dose: 18.7 mls/hr Fentanyl Citrate (Fentanyl Infusion Bag 50 Mcg/Ml 50 Ml) 2,500 mcg in 50 mls @ 0.5 mls/hr IV .PER PROTOCOL [facility]; Protocol Last Admin: 01/10/20 23:24 Dose: 3.5 mls/hr Melatonin (Melatonin) 6 mg PO BEDTIME PRN PRN Reason: SLEEP Last Admin: 01/11/20 22:36 Dose: 6 mg Methylprednisolone Sodium Succinate (Solu-Medrol 40 Mg) 40 mg IV Q12H [facility] Last Admin: 01/12/20 05:42 Dose: 40 mg Multivitamins/Minerals (Theragran/Minerals Tab*) 1 tab PO DAILY [facility] Last Admin: 01/12/20 08:33 Dose: 1 tab Pantoprazole Sodium (Protonix Iv*) 40 mg IV DAILY [facility] Last Admin: 01/12/20 08:33 Dose: 40 mg Sucralfate (Carafate*) 1 gm PO ACHS [facility] Last Admin: 01/12/20 07:42 Dose: 1 gm Objective Vital Signs: Temp Pulse Resp BP Pulse Ox 98.1 F 63 24 111/63 95 01/12/20 09:00 01/12/20 09:00 01/12/20 09:00 01/12/20 09:00 01/12/20 09:00 Oxygen Devices in Use Now: Nasal Cannula Appearance: comfortable, reclining in bed Eyes: No Scleral Icterus Neck: - - JVD 7 cm Respiratory: - - soft rales bases. Cardiovascular: RRR - s1 s2 1 /6 homer base., No Edema - s1 s2 2/6 homer base. Extremities: No Edema Lines/Tubes/Other Access: Clean, Dry and Intact Peripheral IV, Clean, Dry and Intact Central Line Laboratory Results: 01/11/20 04:10 01/12/20 05:55 Total Bilirubin 1.20 mg/dL (0.2-1.0) H 01/10/20 04:30 AST 40 U/L (13-39) H 01/10/20 04:30 ALT 33 U/L (7-52) 01/10/20 04:30 Alkaline Phosphatase 127 U/L (34-104) H 01/10/20 04:30 B-Natriuretic Peptide > 1300 pg/mL (<=100) H 01/08/20 15:00 Total Protein 5.3 g/dL (6.4-8.9) L 01/10/20 04:30 Albumin 2.8 g/dL (3.2-5.2) L 01/10/20 04:30 Globulin 2.5 g/dL (2-4) 01/10/20 04:30 Albumin/Globulin Ratio 1.1 (1-3) 01/10/20 04:30 TSH 4.05 mcIU/mL (0.34-5.60) 01/10/20 04:30 01/08/20 01/09/20 01/09/20 15:00 09:23 15:46 Troponin I 0.06 H* 0.04 H* 0.06 H* 01/09/20 01/09/20 01/10/20 18:45 22:00 04:30 Troponin I 0.12 H* 0.14 H* 0.10 H* 01/11/20 04:10 Troponin I 0.08 H* EKG Data: nsr with interval improvement in QTC Assessment/Plan S/p VT and torsades suspected acquired QT prolongation due to medications. Improving off QT prolonging meds off Dobutamine. discussed with Delaney Kothari and Dr. Figueroa and the patient. Torsades: SUPPLEment Hypocaclemia still present . replace Ca, K, Mag as needed. avoid QT prolonging meds. Zithromycin may take several more days to be eliminated due to half life of 60 hours Cardiomyopathy Unclear etiology: ? stress cardiomyopathy, ? post arrest ?CA repeat echo with severe LV dysfunction. will defer beta sophie for now given qt and potential for bradycardia induced qt prolongation/torasades May require further evaluation for ischemia with a nuclear stress or cath depending on course Pt agreeable to cath; will discuss with Dr. Peterson. Old records from [place] ordered. reviewed [place] records. COPD. BOWLING may have been due to COPD but cannot rule out CAD/ Pneumonia seems to be improving. ID as per hospitalist team. Metabolic : history of moderate alcohol use. consider berleana kirkland. banana bag given yesterday. 35+ minutes spent in discussion and coordination of care. Counseling and/or Coordination of Care Minutes: 35+ minutes
[2020-01-12 11:00] LABS: Magnesium 2.2 mg/dL (1.9-2.7)
[2020-01-12] MEDS: CAPTopril TAB* 12.5 MG TAB PO SCH ×3 (11:22→20:12)
--- NOTE | 2020-01-12 14:02 | PN ---
Date of Service: 01/12/20 Critical Care Services: Doing quite well. Up in bed an on the telephone. No specific complaints. Vital Signs: Temp Pulse Resp BP SpO2 FiO2 99.0 F 66 21 124/79 97 3 Physical Exam: Gen: Alert, oriented, comfortable HEENT: No facial asymmetry Lungs: Clear Cardiac: Reg rhythm Abdomen: Not distended Extremities: No cyanosis or edema Fluid Balance (Past 24 Hours): 01/10/20 01/11/20 01/12/20 06:59 06:59 06:59 Intake Total 1542 312.3 1166 Output Total 1510 1310 1540 Balance 32 -997.7 -374 Weight 179 lb 10.828 oz 177 lb 11.081 oz Intake: IV Fluids 177 60 ABX 30 KCL in Sterile Water 30 Magnesium 110 NS (0.9%) 67 IVPB 497 104 125 ABX 65 KCL in Sterile Water 322 104 Magnesium 110 calcium gluconate 125 Medicated IV 868 148.3 201 CC - Amiodarone 269 CC - Dobutamine 8.3 201 CC - Dopamine 30 CC - Norepinephrine/ 259 Levophed CC - Propofol/Diprivan 340 110 Oral 0 840 Output: NG Tube Drainage Amount 200 Crum 1510 1110 1540 Labs: 01/12/20 05:55 Sodium 136 Potassium 4.3 Chloride 100 L Carbon Dioxide 34 H Anion Gap 2 BUN 36 H Creatinine 0.63 L Est GFR ( Amer) 151.5 Est GFR (Non-Af Amer) 125.2 BUN/Creatinine Ratio 57.1 H Glucose 145 H Calcium 7.8 L Magnesium 2.2 Studies: ECG: QTc = 530 msec Nutrition: Oral diet Impression: 1. 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 Episodes terminated with magnesium. Current QTc > 500 msec 2. Cardiomyopathy with reduced EF (? from cardiac arrest) 3. Ionized hypocalcemia, which certainly contributes to the prolonged QT 4. Patient had been on azithromycin and Reglan, which can also contribue to the prolonged QT 5. Patient had suspected pneumonia on admission, but no current evidence of pneumonia (radiographically or by culture). COVID-19 assay negative. Plan: 1. Correct ionized hypocalcemia 2. Keep potassium > 4 mEq/L 3. Avoid hypomagnesemia 4. D/c antibiotics 5. Cardiology service following patient. Critical Care Time: 40 minutes
[2020-01-12] MEDS: Acetaminophen TAB* 325 MG PO PRN (15:59)
[2020-01-12] MEDS: Enoxaparin(*) 40 MG/0.4 ML SYR SUBCUT SCH (16:00)
[2020-01-12] MEDS: fentaNYL* 50 MCG/ML 2 ML VIAL (100 MCG VIAL) IV SLOW PU PRN (20:10)
[2020-01-12] MEDS: Melatonin 3 MG TAB PO PRN (20:11)
[2020-01-12] MEDS ORDERED: Tamsulosin CAP* 0.4 MG PO SCH (21:00)
[2020-01-13] MEDS: fentaNYL* 50 MCG/ML 2 ML VIAL (100 MCG VIAL) IV SLOW PU PRN (00:14)
[2020-01-13 05:35] LABS: BUN/Creatinine Ratio 53.7 (8-20); Blood Urea Nitrogen 29 mg/dL (6-24); CO2 Carbon Dioxide 36 mmol/L (22-32); Calcium 7.8 mg/dL (8.6-10.3); Chloride 99 mmol/L (101-111); EGFR Non-African American 149.6 (>60); Glucose 101 mg/dL (70-100); Potassium 4.1 mmol/L (3.5-5.0); Sodium 135 mmol/L (135-145)
[2020-01-13] MEDS ORDERED: Acetylcysteine INHALATION SOL* 200 MG/ML NEB.SOLN 10 ML INH PRN (05:42)
[2020-01-13] MEDS ORDERED: Pantoprazole TAB * 40 MG TAB PO SCH (09:00)
[2020-01-13] MEDS: CAPTopril TAB* 12.5 MG TAB PO SCH ×3 (09:00→22:17)
[2020-01-13] MEDS: Thiamine TAB* 100 MG TAB PO SCH (09:01)
[2020-01-13] MEDS: Folic Acid TAB* 1 MG PO SCH (09:01)
[2020-01-13] MEDS: Sucralfate TAB* 1 GM PO SCH ×4 (09:02→22:19)
[2020-01-13] MEDS: Multivitamins/Minerals TAB PO SCH (09:04)
--- NOTE | 2020-01-13 11:53 | PN ---
Subjective Date of Service: 01/13/20 Interval History: Patient denies sob, orthopnea. has not left bed. Still has atypical cp at left chest worse with inspiration and touch attributed to defibrillation. Had mild congestion in chest this am which resolves with coughing up sputum. No further torasdes. QT improving but still prolonged. Medications Active Medications: Acetaminophen (Tylenol Tab*) 650 mg PO Q6H PRN PRN Reason: PAIN - MILD Last Admin: 01/12/20 15:59 Dose: 650 mg Acetylcysteine (Mucomyst Inhalation Lluvia*) 200 mg INH BID PRN PRN Reason: SHORTNESS OF BREATH Albuterol/Ipratropium (Duoneb (Albuterol 2.5 Mg/Ipratropium 0.5 Mg)) 1 neb INH Q4H PRN PRN Reason: SHORTNESS OF BREATH Captopril (Capoten Tab*) 6.25 mg PO TID [facility] Last Admin: 01/13/20 09:00 Dose: 6.25 mg Enoxaparin Sodium (Lovenox(*)) 40 mg SUBCUT Q24H [facility] Last Admin: 01/12/20 16:00 Dose: 40 mg Fentanyl Citrate (Fentanyl*) 50 mcg IV SLOW PU Q2H PRN PRN Reason: PAIN Last Admin: 01/13/20 00:14 Dose: 50 mcg Folic Acid (Folvite Tab*) 1 mg PO DAILY [facility] Last Admin: 01/13/20 09:01 Dose: 1 mg Heparin Sodium (Porcine) (Heparin Flush Picc/Ml/Cvc(*)) 1 - 3 ml FLUSH 0600, 1800 [facility]; Protocol Last Admin: 01/13/20 05:00 Dose: 3 ml Melatonin (Melatonin) 6 mg PO BEDTIME PRN PRN Reason: SLEEP Last Admin: 01/12/20 20:11 Dose: 6 mg Multivitamins/Minerals (Theragran/Minerals Tab*) 1 tab PO DAILY [facility] Last Admin: 01/13/20 09:04 Dose: 1 tab Pantoprazole Sodium (Protonix Tab*) 40 mg PO DAILY [facility] Last Admin: 01/13/20 09:01 Dose: 40 mg Sucralfate (Carafate*) 1 gm PO ACHS [facility] Last Admin: 01/13/20 11:23 Dose: 1 gm Tamsulosin HCl (Flomax Cap*) 0.8 mg PO BEDTIME [facility] Last Admin: 01/12/20 20:10 Dose: 0.8 mg Thiamine HCl (Vitamin B-1 Tab*) 100 mg PO DAILY [facility] Last Admin: 01/13/20 09:01 Dose: 100 mg Objective Vital Signs: Temp Pulse Resp BP Pulse Ox 97.6 F 58 20 108/70 100 01/13/20 07:24 01/13/20 07:24 01/13/20 07:24 01/13/20 09:00 01/13/20 07:24 Oxygen Devices in Use Now: Nasal Cannula Appearance: comfortable, reclining in bed Eyes: No Scleral Icterus Neck: - - JVD 7 cm Respiratory: Clear to Auscultation, - - soft rales bases. Cardiovascular: RRR - s1 s2 1 /6 homer base., No Edema - s1 s2 2/6 homer base. Extremities: No Edema Lines/Tubes/Other Access: Clean, Dry and Intact Peripheral IV, Clean, Dry and Intact Central Line Laboratory Results: 01/11/20 04:10 01/13/20 04:55 Total Bilirubin 1.20 mg/dL (0.2-1.0) H 01/10/20 04:30 AST 40 U/L (13-39) H 01/10/20 04:30 ALT 33 U/L (7-52) 01/10/20 04:30 Alkaline Phosphatase 127 U/L (34-104) H 01/10/20 04:30 B-Natriuretic Peptide > 1300 pg/mL (<=100) H 01/08/20 15:00 Total Protein 5.3 g/dL (6.4-8.9) L 01/10/20 04:30 Albumin 2.8 g/dL (3.2-5.2) L 01/10/20 04:30 Globulin 2.5 g/dL (2-4) 01/10/20 04:30 Albumin/Globulin Ratio 1.1 (1-3) 01/10/20 04:30 TSH 4.05 mcIU/mL (0.34-5.60) 01/10/20 04:30 01/08/20 01/09/20 01/09/20 15:00 09:23 15:46 Troponin I 0.06 H* 0.04 H* 0.06 H* 03/01/09/20 01/10/20 18:45 22:00 04:30 Troponin I 0.12 H* 0.14 H* 0.10 H* 01/11/20 04:10 Troponin I 0.08 H* Diagnostic Imaging: ekg sb 57 with PRWP anterior t wave inversions. similar to 3.28 with slight improvement in qtc EKG Data: nsr with interval improvement in QTC Assessment/Plan S/p VT and torsades suspected acquired QT prolongation due to medications. Improving off QT prolonging meds discussed with Dr. Franco and Dr. Figueroa Torsades:replace Ca, K, Mag as needed. will start potassium. avoid QT prolonging meds will dc protonix Zithromycin may take several more days to be eliminated due to half life of 60 hours Cardiomyopathy Unclear etiology: ? stress cardiomyopathy, ? post arrest ?CA repeat echo with severe LV dysfunction. will defer beta sophie for now given qt and potential for bradycardia induced qt prolongation/torasades May require further evaluation for ischemia with a nuclear stress or cath depending on course Pt agreeable to cath; discussed with Dr. Peterson : will defer timing to Dr. Cornejo Old records from [place] pending May need ICD given presentation of arrest and low EF. Patient willing to accept this is appropriate. COPD. BOWLING may have been due to COPD but cannot rule out CAD/ Pneumonia seems to be improving. ID as per hospitalist team. Metabolic : history of moderate alcohol use. consider beriberi wernicke. banana bag given 3.27 25+ minutes spent in discussion and coordination of care.
--- NOTE | 2020-01-13 12:08 | PN ---
Subjective Date of Service: 01/13/20 Interval History: Pt has no new complaints, uneventful night. Still has a Crum and triple lumen in left subclavian [place] Has not had a BM since admission Has not walked well since fall on 12/25 and bruising his r hip Objective Active Medications: Acetaminophen (Tylenol Tab*) 650 mg PO Q6H PRN PRN Reason: PAIN - MILD Last Admin: 01/12/20 15:59 Dose: 650 mg Acetylcysteine (Mucomyst Inhalation Lluvia*) 200 mg INH BID PRN PRN Reason: SHORTNESS OF BREATH Albuterol/Ipratropium (Duoneb (Albuterol 2.5 Mg/Ipratropium 0.5 Mg)) 1 neb INH Q4H PRN PRN Reason: SHORTNESS OF BREATH Captopril (Capoten Tab*) 6.25 mg PO TID [facility] Last Admin: 01/13/20 09:00 Dose: 6.25 mg Enoxaparin Sodium (Lovenox(*)) 40 mg SUBCUT Q24H [facility] Last Admin: 01/12/20 16:00 Dose: 40 mg Fentanyl Citrate (Fentanyl*) 50 mcg IV SLOW PU Q2H PRN PRN Reason: PAIN Last Admin: 01/13/20 00:14 Dose: 50 mcg Folic Acid (Folvite Tab*) 1 mg PO DAILY [facility] Last Admin: 01/13/20 09:01 Dose: 1 mg Heparin Sodium (Porcine) (Heparin Flush Picc/Ml/Cvc(*)) 1 - 3 ml FLUSH 0600, 1800 [facility]; Protocol Last Admin: 01/13/20 05:00 Dose: 3 ml Melatonin (Melatonin) 6 mg PO BEDTIME PRN PRN Reason: SLEEP Last Admin: 01/12/20 20:11 Dose: 6 mg Multivitamins/Minerals (Theragran/Minerals Tab*) 1 tab PO DAILY [facility] Last Admin: 01/13/20 09:04 Dose: 1 tab Pantoprazole Sodium (Protonix Tab*) 40 mg PO DAILY [facility] Last Admin: 01/13/20 09:01 Dose: 40 mg Sucralfate (Carafate*) 1 gm PO ACHS [facility] Last Admin: 01/13/20 11:23 Dose: 1 gm Tamsulosin HCl (Flomax Cap*) 0.8 mg PO BEDTIME [facility] Last Admin: 01/12/20 20:10 Dose: 0.8 mg Thiamine HCl (Vitamin B-1 Tab*) 100 mg PO DAILY [facility] Last Admin: 01/13/20 09:01 Dose: 100 mg Vital Signs - 8 hr 01/13/20 01/13/20 01/13/20 04:22 07:24 09:00 Temperature 97.6 F Pulse Rate 58 Respiratory 16 20 Rate Blood Pressure 105/61 108/70 (mmHg) O2 Sat by Pulse 100 Oximetry Oxygen Devices in Use Now: Nasal Cannula Appearance: 74 yo M in nAD, aAOx3 Eyes: No Scleral Icterus, PERRLA Ears/Nose/Mouth/Throat: NL Teeth, Lips, Gums, Mucous Membranes Moist Neck: NL Appearance and Movements; NL JVP, Trachea Midline Respiratory: Symmetrical Chest Expansion and Respiratory Effort, - - faint bibasiliar crackles Cardiovascular: NL Sounds; No Murmurs; No JVD, RRR Abdominal: NL Sounds; No Tenderness; No Distention Lymphatic: No Cervical Adenopathy Extremities: No Edema, No Clubbing, Cyanosis Skin: No Rash or Ulcers, No Nodules or Sclerosis Neurological: Alert and Oriented x 3, NL Muscle Strength and Tone, - - difficulty in flexing R hip due to pain, no motor deficit Result Diagrams: 01/11/20 04:10 01/13/20 04:55 Microbiology and Other Data: Microbiology 01/08/20 14:59 Aerobic Blood Culture - Preliminary Blood Venous No Growth Day 4 Anaerobic Blood Culture - Preliminary No Growth Day 4 01/08/20 15:00 Aerobic Blood Culture - Preliminary Blood Venous No Growth Day 4 Anaerobic Blood Culture - Preliminary No Growth Day 4 01/08/20 17:15 Nasal Screen MRSA (PCR) - Final Nasal Mrsa Not Detected Assess/Plan/Problems-Billing Assessment: 74 yo M with h/o GERD, Nathaniel's, BPH, HTN, ulcer and GI bleed, s/p partial gastrectomy , tracheostomy in 2004, pulm HTN, COPD requiring 02 at 2 l prn in the past 4 mos, HASMUKH (untreated) fell on ice on suffered from fx of ribs 2-5 on R and lung contusion and R hip contusion and pneumonia . Transferred from [facility] to [facility], d/c'd from there to [facility] on 01/03/20. Baseline 02 requirement was 3 l at that time. Was on Azithromycin for PNA and Reglan for nausea On 02/06 noted to be hypernatremic and received IVF on 02/07 was noted to be lethargic and hypoxemic, transferred to [facility] ED , intubated for CO2 102. Treated with Cefepime for LLL PNA. When intubated had multiple Torsades cardiac arrests (responded to shocks and magnesium) noted to have QTc>600 msec likely related to Azitho/Reglan combination-Qt improved with time. Transferred to [facility] floor on 01/12/20 with Crum and left subclavian triple lumen in place. 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 due to "stunned myocardium"? Likely will need cath, cardiology following due to h/o ETOH :thiamine and folate started cont Captopril (4) BPH (benign prostatic hyperplasia) Comment: Crum in place, to be d/c'd in AM. Cont Flomax, restart oxybutynin ( reviewed literature-not associated with QT prolongation) (5) COPD (chronic obstructive pulmonary disease) Comment: with acute on chronic hypoxemic respiratory failure cont 02 at 4L cont Incruse ellipta, nebs Not in exacerbation, off steroids. (6) DVT prophylaxis Comment: Lovenox Status and Disposition: Inpatient
[2020-01-13] MEDS: Potassium Chloride* LIQUID 20 MEQ/15 ML UDC PO SCH (13:00)
[2020-01-13] MEDS ORDERED: Albuterol HFA INHALER* 8 gm MDI INH PRN (13:14)
[2020-01-13] MEDS ORDERED: Magnesium Hydroxide LIQ* 30 ML UDC PO PRN (14:34)
[2020-01-13] MEDS ORDERED: Polyethylene Glycol 3350* 17 GM PACKET PO PRN (14:34)
[2020-01-13] MEDS ORDERED: Senna TAB 8.6 mg* TAB PO PRN (14:34)
[2020-01-13] MEDS: Calcium Carbonate CHEW TAB* 500 MG (TUMS) PO SCH ×2 (16:43→22:15)
[2020-01-13] MEDS: Enoxaparin(*) 40 MG/0.4 ML SYR SUBCUT SCH (16:44)
[2020-01-13] MEDS: Tamsulosin CAP* 0.4 MG PO SCH (17:06)
[2020-01-13] MEDS ORDERED: Omeprazole CAP (NF) 20 MG CAP.DR PO SCH (21:00)
[2020-01-13] MEDS ORDERED: Melatonin (NF) ** ENTER STRENGTH IN LABEL DIRECTIONS PO SCH (21:00)
[2020-01-13] MEDS: Magnesium Hydroxide LIQ* 30 ML UDC PO SCH (22:15)
[2020-01-13] MEDS: oxyCODONE TAB* 5 MG TAB PO PRN (22:16)
[2020-01-13] MEDS: Melatonin 3 MG TAB PO PRN (22:16)
[2020-01-13] MEDS: Docusate CAP* 100 MG PO SCH (22:18)
[2020-01-14] MEDS: Acetaminophen TAB* 325 MG PO PRN (01:36)
[2020-01-14 05:39] LABS: BUN/Creatinine Ratio 39.7 (8-20); Calcium 7.9 mg/dL (8.6-10.3); EGFR African American 166.6 (>60); EGFR Non-African American 137.7 (>60); Potassium 4.4 mmol/L (3.5-5.0)
[2020-01-14] MEDS: SPIRIVA Respimat* (tiotropium) 2.5 mcg/inh Inhaler INH SCH (07:58)
[2020-01-14] MEDS: Sucralfate TAB* 1 GM PO SCH ×4 (08:02→21:27)
[2020-01-14] MEDS: Senna TAB 8.6 mg* TAB PO SCH (09:06)
[2020-01-14] MEDS: Folic Acid TAB* 1 MG PO SCH (09:06)
[2020-01-14] MEDS: Multivitamins/Minerals TAB PO SCH (09:06)
[2020-01-14] MEDS: Docusate CAP* 100 MG PO SCH ×2 (09:06→21:26)
[2020-01-14] MEDS: Calcium Carbonate CHEW TAB* 500 MG (TUMS) PO SCH ×4 (09:07→21:26)
[2020-01-14] MEDS: Oxybutynin XL TAB* 5 MG PO SCH (09:07)
[2020-01-14] MEDS: Thiamine TAB* 100 MG TAB PO SCH (09:07)
[2020-01-14] MEDS: Magnesium Hydroxide LIQ* 30 ML UDC PO SCH ×2 (09:07→21:29)
[2020-01-14] MEDS: CAPTopril TAB* 12.5 MG TAB PO SCH ×3 (09:07→21:23)
[2020-01-14] MEDS ORDERED: diPHENhydraMINE PO* 25 MG PO PRN (09:08)
[2020-01-14] MEDS ORDERED: Diazepam TAB(*) 5 MG PO PRN (09:08)
[2020-01-14] MEDS: Potassium Chloride* LIQUID 20 MEQ/15 ML UDC PO SCH (09:08)
[2020-01-14] MEDS ORDERED: NS 0.9% 1000 ML** 1,000 ML IV SCH (09:15)
[2020-01-14] MEDS ORDERED: Lidocaine 1% INJ* 10 MG/ML 30 ML SDV ONE (14:16)
[2020-01-14] MEDS ORDERED: Heparin 2 UNITS/ML IVPREMIX* 1,000 ML IV ONE (14:16)
[2020-01-14] MEDS ORDERED: Iohexol 350 (CONTRAST) 200 ML MDV IV ONE (14:16)
[2020-01-14] MEDS ORDERED: diPHENhydraMINE PO* 25 MG ONE ×2 (14:23→14:24)
[2020-01-14] MEDS ORDERED: Diazepam TAB(*) 5 MG ONE (14:25)
[2020-01-14] MEDS ORDERED: Midazolam* 1 MG/ML 5 ML VIAL (5 MG) ONE (14:27)
[2020-01-14] MEDS ORDERED: Heparin(*) 1000 UNIT/ML 10 ML VIAL CATH LAB IV ONE (14:27)
[2020-01-14] MEDS ORDERED: fentaNYL* 50 MCG/ML 2 ML VIAL (100 MCG VIAL) ONE (14:27)
[2020-01-14] MEDS ORDERED: VERAPAMIL 2.5 MG/ML 2 ML VIAL ** 5 mg/2 ml ONE (14:27)
[2020-01-14] MEDS ORDERED: nitroGLYCERIN DRIP* 25,000 MCG/250 ML BTL ONE (14:27)
[2020-01-14] MEDS ORDERED: Heparin 2 UNITS/ML IVPREMIX* 2,000 ML IV ONE (14:27)
--- NOTE | 2020-01-14 14:43 | PN ---
Subjective Date of Service: 01/14/20 Interval History: Pt feels well, down to 2 L 02. NPO for cath today Crum removed this AM Objective Active Medications: Acetaminophen (Tylenol Tab*) 650 mg PO Q6H PRN PRN Reason: PAIN - MILD Last Admin: 01/14/20 01:36 Dose: 650 mg Albuterol/Ipratropium (Duoneb (Albuterol 2.5 Mg/Ipratropium 0.5 Mg)) 1 neb INH Q4H PRN PRN Reason: SHORTNESS OF BREATH Calcium Carbonate (Tums*) 1,000 mg PO QID [facility] Last Admin: 01/14/20 13:27 Dose: 1,000 mg Captopril (Capoten Tab*) 6.25 mg PO TID [facility] Last Admin: 01/14/20 13:26 Dose: 6.25 mg Diazepam (Valium Tab(*)) 5 mg PO ONCE PRN PRN Reason: scallop cutter machine to Crating And Moving Estimator Diphenhydramine HCl (Benadryl Po*) 25 mg PO ONCE PRN PRN Reason: scallop cutter machine to Crating And Moving Estimator Docusate Sodium (Colace Cap*) 100 mg PO BID [facility] Last Admin: 01/14/20 09:06 Dose: 100 mg Enoxaparin Sodium (Lovenox(*)) 40 mg SUBCUT Q24H [facility] Last Admin: 01/13/20 16:44 Dose: 40 mg Folic Acid (Folvite Tab*) 1 mg PO DAILY [facility] Last Admin: 01/14/20 09:06 Dose: 1 mg Heparin Sodium (Porcine) (Heparin Flush Picc/Ml/Cvc(*)) 1 - 3 ml FLUSH 0600, 1800 [facility]; Protocol Last Admin: 01/14/20 05:05 Dose: 3 ml Sodium Chloride (Ns 0.9% 1000 Ml) 1,000 mls @ 100 mls/hr IV .per rate [facility] Last Admin: 01/14/20 10:09 Dose: 100 mls/hr Magnesium Hydroxide (Milk Of Magnesia Liq*) 30 ml PO BID [facility] Last Admin: 01/14/20 09:07 Dose: Not Given Magnesium Hydroxide (Milk Of Magnesia Liq*) 30 ml PO BID PRN PRN Reason: CONSTIPATION Melatonin (Melatonin) 6 mg PO BEDTIME PRN PRN Reason: SLEEP Last Admin: 01/13/20 22:16 Dose: 6 mg Multivitamins/Minerals (Theragran/Minerals Tab*) 1 tab PO DAILY [facility] Last Admin: 01/14/20 09:06 Dose: 1 tab Oxybutynin Chloride (Ditropan Xl Tab*) 5 mg PO DAILY [facility] Last Admin: 01/14/20 09:07 Dose: 5 mg Oxycodone HCl (Roxycodone Tab*) 10 mg PO Q6H PRN PRN Reason: PAIN - MODERATE Last Admin: 01/13/20 22:16 Dose: 10 mg Polyethylene Glycol/Electrolytes (Miralax (17 Gm Dose Marcio)) 17 gm PO DAILY PRN PRN Reason: CONSTIPATION Potassium Chloride (Potassium Chloride Liquid) 20 meq PO DAILY [facility] Last Admin: 01/14/20 09:08 Dose: 20 meq Senna (Senokot 8.6 Mg Tab*) 2 tab PO DAILY [facility] Last Admin: 01/14/20 09:06 Dose: 2 tab Senna (Senokot 8.6 Mg Tab*) 1 tab PO BEDTIME PRN PRN Reason: CONSTIPATION Sucralfate (Carafate*) 1 gm PO ACHS [facility] Last Admin: 01/14/20 11:44 Dose: Not Given Tamsulosin HCl (Flomax Cap*) 0.8 mg PO QPM [facility] Last Admin: 01/13/20 17:06 Dose: 0.8 mg Thiamine HCl (Vitamin B-1 Tab*) 100 mg PO DAILY [facility] Last Admin: 01/14/20 09:07 Dose: 100 mg Tiotropium [place] (Spiriva Respimat 2.5 Mcg) 2 puff INH DAILY [facility] Last Admin: 01/14/20 07:58 Dose: 2 puff Vital Signs - 8 hr 01/14/20 01/14/20 01/14/20 07:36 08:00 11:15 Temperature 97.9 F 97.4 F Pulse Rate 61 66 Respiratory 20 20 20 Rate Blood Pressure 109/66 109/55 (mmHg) O2 Sat by Pulse 99 94 Oximetry Oxygen Devices in Use Now: Nasal Cannula Appearance: 74 yo m in nAD, AAOx3 Eyes: No Scleral Icterus, PERRLA Ears/Nose/Mouth/Throat: NL Teeth, Lips, Gums, Mucous Membranes Moist Neck: NL Appearance and Movements; NL JVP, Trachea Midline Respiratory: Symmetrical Chest Expansion and Respiratory Effort, Clear to Auscultation Cardiovascular: NL Sounds; No Murmurs; No JVD, RRR Abdominal: NL Sounds; No Tenderness; No Distention Lymphatic: No Cervical Adenopathy Extremities: No Edema Skin: No Nodules or Sclerosis, - - R leg abrasion close to knee covered with eschar Neurological: Alert and Oriented x 3, NL Muscle Strength and Tone, - - painful R hip flexion(dx with bone contusion) Result Diagrams: 01/11/20 04:10 01/14/20 05:00 Microbiology and Other Data: Microbiology 01/08/20 14:59 Aerobic Blood Culture - Preliminary Blood Venous No Growth Day 4 Anaerobic Blood Culture - Preliminary No Growth Day 4 01/08/20 15:00 Aerobic Blood Culture - Preliminary Blood Venous No Growth Day 4 Anaerobic Blood Culture - Preliminary No Growth Day 4 01/08/20 17:15 Nasal Screen MRSA (PCR) - Final Nasal Mrsa Not Detected Assess/Plan/Problems-Billing Assessment: 74 yo M with h/o GERD, Nathaniel's, BPH, HTN, ulcer and GI bleed, s/p partial gastrectomy , tracheostomy in 2004, pulm HTN, COPD requiring 02 at 2 l prn in the past 4 mos, HASMUKH (untreated) fell on ice on suffered from fx of ribs 2-5 on R and lung contusion and R hip contusion and pneumonia . Transferred from [facility] to [facility], d/c'd from there to [facility] on 01/03/20. Baseline 02 requirement was 3 l at that time. Was on Azithromycin for PNA and Reglan for nausea On 02/06 noted to be hypernatremic and received IVF on 02/07 was noted to be lethargic and hypoxemic, transferred to [facility] ED , intubated for CO2 102. Treated with Cefepime for LLL PNA. When intubated had multiple Torsades cardiac arrests (responded to shocks and magnesium) noted to have QTc>600 msec likely related to Azitho/Reglan combination-Qt improved with time. Transferred to [facility] floor on 01/12/20 with Radames (D/c'd 01/14/20)and left subclavian triple lumen in place. 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 due to "stunned myocardium"? for cath today cardiology following due to h/o ETOH : thiamine and folate started cont Captopril (4) BPH (benign prostatic hyperplasia) Comment: Crum d/c'd this AM. Cont Flomax, restarted oxybutynin 01/13/20 ( reviewed literature-not associated with QT prolongation) (5) COPD (chronic obstructive pulmonary disease) Comment: with acute on chronic hypoxemic respiratory failure cont 02 at 2L cont Incruse ellipta, nebs Not in exacerbation, off steroids. (6) DVT prophylaxis Comment: Lovenox Status and Disposition: Inpatient Can be discharged back to [facility] once medically ready
--- NOTE | 2020-01-14 16:58 | CATH ---
"*[facility]* [address] [address] Main: [phone] [email or web address] Cardiac Catheterization Patient: Hung Jane : 1945 Study Date: 01/14/2020 Age: 74 Gender: M HR: Height: 71 in /180.3 cm BSA: 2.01 m^2 Weight: 177.1 lb /80.5 kg BMI: 24.8 kg/m^2 Weather Forcaster: Jose Cornejo MD Ordering Physician: Jose Cornejo MD Referring Physician: Jose Cornejo MD, Clemente Cyr, --- - Left coronary angiography. - Right coronary angiography. Summary: Normal coronary arteries Normal left ventricle end diastolic pressure Recommendations: Continue medial management of non-ischemic cardiomyopathy. History: Risk factors: Hypertension. Labs, prior tests, procedures, and surgery: Blood tests: Troponin I (pre-procedure) of 0.08 ng/ml. Serum potassium (K) of 4.4 mEq/l. Serum sodium (Na) of 138 mEq/l. Serum creatinine (current admission) of 0.6 mg/dl. Blood urea nitrogen of 23 mg/dl. Glucose of 98 mg/dl. Platelet count of 201 th/ul. White blood cell count (WBC) of 0.01 th/ul. Red blood cell count (RBC) of 4700 th/ul. Hematocrit of 46 %. Hemoglobin (pre-procedure) of 15 g/dl. Study data: Study status: Cardiac cath: urgent. Location: Catheterization laboratory. Consent: The risks, benefits, and alternatives to the procedure were explained to the patient and/or their healthcare hr representative and written informed consent was obtained. All available pre-procedure labs were reviewed. Height: 180.3 cm. 71 in. Weight: 80.5 kg. 177.1 lb. Body surface area: 2.01 m^2. Body mass index: 24.8 kg/m^2. Procedure: 1. Initial setup. The patient was brought to the laboratory. Surface ECG leads, blood pressure measurements, and pulse oximetric signals were monitored. A baseline seven lead ECG was recorded. A time out was observed per protocol. 2. Skin preparation. The planned puncture sites were prepped and draped in the usual sterile manner. 3. Local anesthesia. 1% lidocaine was administered. 4. Local anesthesia. 1% lidocaine (1 ml) was administered. 5. Right radial artery access. A 6F [place] Slender sheath was advanced into the vessel. 6. Selective left coronary angiography. A 5F TIG 4.0 catheter was advanced into the left coronary vessel ostium under fluoroscopic guidance. Contrast was injected. Images were obtained in multiple projections. 7. Selective right coronary angiography. A 5F TIG 4.0 catheter was advanced into the right coronary vessel ostium under fluoroscopic guidance. Contrast was injected. Images were obtained in multiple projections. 8. Right radial artery hemostasis. Vessel closure was achieved with a Regular Vasc Band device. Study completion: Minimal estimated blood loss. All catheters inserted during the procedure were removed. There were no apparent complications. Administered medications: BENADRYL (Diphenhydramine), 25mg, PO. VALIUM (Diazepam), 5mg, PO. VERSED (Midazolam), 1mg, IV. Fentanyl, 25mcg, IV. (Radial) Nitroglycerin, 300mcg, intra-arterially. (Radial) Verapamil, 3mg, intra-arterially. (Radial) Heparin, 3,000units, intra-arterially. NaCl 0.9% , infusion , at a rate of 100 ml/hr. Contrast: Omnipaque 350 50 ml (total dose). Omnipaque 350 150 ml (wasted). Radiation: Fluoroscopy dose: 121.8 cGy. Discharge: The patient tolerated the procedure well and was discharged from the lab in stable condition. Findings Coronary arteries: The coronary circulation is right dominant. Left main: Normal, 0% stenosis. LAD: Normal, 0% stenosis. Left circumflex: Normal, 0% stenosis. Right coronary: Normal, 0% stenosis. Hemodynamics: + + + |Stage description |Condition 1 - | + + + |LV pressure s/d, ed |114/13, 20, dP/yt=709 mm Hg/s| + + + |Arterial pressure s/d (m)|116/70 (90) | + + + Prepared and electronically signed by Jose Cornejo MD 01/14/2020 16:57"
[2020-01-14] MEDS: Enoxaparin(*) 40 MG/0.4 ML SYR SUBCUT SCH (17:20)
[2020-01-14] MEDS: Tamsulosin CAP* 0.4 MG PO SCH (17:20)
[2020-01-14] MEDS: oxyCODONE TAB* 5 MG TAB PO PRN (21:24)
[2020-01-14] MEDS: Melatonin 3 MG TAB PO PRN (21:26)
[2020-01-15 07:05] LABS: Calcium 8.2 mg/dL (8.6-10.3); EGFR African American 173.5 (>60); EGFR Non-African American 143.4 (>60); Magnesium 1.7 mg/dL (1.9-2.7); Potassium 4.4 mmol/L (3.5-5.0)
[2020-01-15] MEDS: Sucralfate TAB* 1 GM PO SCH ×4 (07:58→20:39)
[2020-01-15] MEDS: SPIRIVA Respimat* (tiotropium) 2.5 mcg/inh Inhaler INH SCH (08:23)
[2020-01-15] MEDS: Potassium Chloride* LIQUID 20 MEQ/15 ML UDC PO SCH (09:16)
[2020-01-15] MEDS: Calcium Carbonate CHEW TAB* 500 MG (TUMS) PO SCH ×4 (09:17→20:40)
[2020-01-15] MEDS: Oxybutynin XL TAB* 5 MG PO SCH (09:18)
[2020-01-15] MEDS: Multivitamins/Minerals TAB PO SCH (09:18)
[2020-01-15] MEDS: Thiamine TAB* 100 MG TAB PO SCH (09:18)
[2020-01-15] MEDS: Senna TAB 8.6 mg* TAB PO SCH (09:18)
[2020-01-15] MEDS: Folic Acid TAB* 1 MG PO SCH (09:18)
[2020-01-15] MEDS: Docusate CAP* 100 MG PO SCH ×2 (09:18→20:40)
[2020-01-15] MEDS: CAPTopril TAB* 12.5 MG TAB PO SCH ×3 (09:19→20:38)
[2020-01-15] MEDS: Magnesium Hydroxide LIQ* 30 ML UDC PO SCH ×2 (09:22→20:38)
[2020-01-15] MEDS ORDERED: Magnesium Sulfate 2 GM IV* 2 GM/50 ML BAG IVPB ONE (10:13)
[2020-01-15] MEDS: Albuterol/Ipratropium NEB.SOL* Albuterol 2.5 MG/Ipratropium 0.5 MG 3 ML INH PRN (10:51)
--- NOTE | 2020-01-15 10:55 | PN ---
Subjective Date of Service: 01/15/20 Interval History: Pt is feeling ok. He just worked with PT. He still feels quite weak. He denies any pain at this time. He notes his breathing feels "tight." He has been doing some coughing and is bringing up some sputum. Objective Active Medications: Acetaminophen (Tylenol Tab*) 650 mg PO Q6H PRN PRN Reason: PAIN - MILD Last Admin: 01/14/20 01:36 Dose: 650 mg Albuterol/Ipratropium (Duoneb (Albuterol 2.5 Mg/Ipratropium 0.5 Mg)) 1 neb INH Q4H PRN PRN Reason: SHORTNESS OF BREATH Calcium Carbonate (Tums*) 1,000 mg PO QID [facility] Last Admin: 01/15/20 09:17 Dose: 1,000 mg Captopril (Capoten Tab*) 6.25 mg PO TID [facility] Last Admin: 01/15/20 09:19 Dose: 6.25 mg Diazepam (Valium Tab(*)) 5 mg PO ONCE PRN PRN Reason: filleter to Procurement Specialist Diphenhydramine HCl (Benadryl Po*) 25 mg PO ONCE PRN PRN Reason: filleter to Procurement Specialist Docusate Sodium (Colace Cap*) 100 mg PO BID [facility] Last Admin: 01/15/20 09:18 Dose: 100 mg Enoxaparin Sodium (Lovenox(*)) 40 mg SUBCUT Q24H [facility] Last Admin: 01/14/20 17:20 Dose: 40 mg Folic Acid (Folvite Tab*) 1 mg PO DAILY [facility] Last Admin: 01/15/20 09:18 Dose: 1 mg Heparin Sodium (Porcine) (Heparin Flush Picc/Ml/Cvc(*)) 1 - 3 ml FLUSH 0600, 1800 [facility]; Protocol Last Admin: 01/15/20 05:11 Dose: 3 ml Magnesium Sulfate (Magnesium Sulfate 2 Gm Iv*) 2 gm in 50 mls @ 50 mls/hr IVPB ONCE ONE Stop: 01/15/20 11:12 Magnesium Hydroxide (Milk Of Magnesia Liq*) 30 ml PO BID [facility] Last Admin: 01/15/20 09:22 Dose: Not Given Magnesium Hydroxide (Milk Of Magnesia Liq*) 30 ml PO BID PRN PRN Reason: CONSTIPATION Melatonin (Melatonin) 6 mg PO BEDTIME PRN PRN Reason: SLEEP Last Admin: 01/14/20 21:26 Dose: 6 mg Multivitamins/Minerals (Theragran/Minerals Tab*) 1 tab PO DAILY [facility] Last Admin: 01/15/20 09:18 Dose: 1 tab Oxybutynin Chloride (Ditropan Xl Tab*) 5 mg PO DAILY [facility] Last Admin: 01/15/20 09:18 Dose: 5 mg Oxycodone HCl (Roxycodone Tab*) 10 mg PO Q6H PRN PRN Reason: PAIN - MODERATE Last Admin: 01/14/20 21:24 Dose: 10 mg Polyethylene Glycol/Electrolytes (Miralax (17 Gm Dose Marcio)) 17 gm PO DAILY PRN PRN Reason: CONSTIPATION Potassium Chloride (Potassium Chloride Liquid) 20 meq PO DAILY [facility] Last Admin: 01/15/20 09:16 Dose: 20 meq Senna (Senokot 8.6 Mg Tab*) 2 tab PO DAILY [facility] Last Admin: 01/15/20 09:18 Dose: 2 tab Senna (Senokot 8.6 Mg Tab*) 1 tab PO BEDTIME PRN PRN Reason: CONSTIPATION Sucralfate (Carafate*) 1 gm PO ACHS [facility] Last Admin: 01/15/20 07:58 Dose: 1 gm Tamsulosin HCl (Flomax Cap*) 0.8 mg PO QPM [facility] Last Admin: 01/14/20 17:20 Dose: 0.8 mg Thiamine HCl (Vitamin B-1 Tab*) 100 mg PO DAILY [facility] Last Admin: 01/15/20 09:18 Dose: 100 mg Tiotropium [place] (Spiriva Respimat 2.5 Mcg) 2 puff INH DAILY [facility] Last Admin: 01/15/20 08:23 Dose: 2 puff Vital Signs - 8 hr 01/15/20 01/15/20 01/15/20 03:30 08:00 08:08 Temperature 97.6 F 98.3 F Pulse Rate 75 76 Respiratory 20 18 20 Rate Blood Pressure 124/67 130/75 (mmHg) O2 Sat by Pulse 91 97 Oximetry Oxygen Devices in Use Now: Nasal Cannula - 4L Appearance: Elderly male sitting up in chair, appearing mildly dyspnic but in NAD Eyes: No Scleral Icterus Ears/Nose/Mouth/Throat: Mucous Membranes Moist Respiratory: - - Very tight coarse breath sounds, overall sounds are diminished throughout Cardiovascular: NL Sounds; No Murmurs; No JVD, RRR, No Edema Abdominal: NL Sounds; No Tenderness; No Distention Skin: - - large scab on lateral R knee Neurological: Alert and Oriented x 3 Result Diagrams: 01/11/20 04:10 01/15/20 06:09 Microbiology and Other Data: Microbiology 01/08/20 14:59 Aerobic Blood Culture - Preliminary Blood Venous No Growth Day 4 Anaerobic Blood Culture - Preliminary No Growth Day 4 01/08/20 15:00 Aerobic Blood Culture - Preliminary Blood Venous No Growth Day 4 Anaerobic Blood Culture - Preliminary No Growth Day 4 01/08/20 17:15 Nasal Screen MRSA (PCR) - Final Nasal Mrsa Not Detected Assess/Plan/Problems-Billing MR Jane 74 yo M with h/o GERD, Nathaniel's esophagus, BPH, HTN, ulcer and GI bleed s/p partial gastrectomy, tracheostomy (no healed) in 2004, pulm HTN, COPD requiring 02 at 2L prn in the past 4 months, HASMUKH (untreated) who fell on ice on 12/26/19 suffered fracture of ribs 2-5 on R, lung contusion and R hip contusion and pneumonia. Transferred from [facility] d/c'd from [facility] to [facility] on 01/03/20. Baseline 02 requirement was 3L at that time. Was on Azithromycin for PNA and Reglan for nausea. On 02/06 noted to be hypernatremic and received fluid via clysis on 02/07 and then was noted to be lethargic and hypoxemic, transferred to [facility] where he was intubated for hypercarbic respiratory failure with a pCO2 of 102. When intubated he had multiple episodes of Torsades cardiac arrests (responded to shocks and magnesium ) and was noted to have QTc>600 msec likely related to Azithomycin/Reglan combination. Transferred to Telemetry floor on 01/12/20. - Patient Problems (1) Acute hypercapnic respiratory failure Current Visit: Yes Status: Acute Code(s): J96.02 - ACUTE RESPIRATORY FAILURE WITH HYPERCAPNIA SNOMED Code(s): 312364083 Comment: Secondary to pneumonia and COPD. He is relatively stable from a respiratory standpoint. He is on 4L O2 currently and his breath sounds are tight. Will give neb now. Monitor respiratory status. 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 QT has improved. He is no longer on these medications. He needs life vest per cardiology. Will need close cardiology follow up. (3) COPD (chronic obstructive pulmonary disease) Current Visit: Yes Status: Acute Code(s): J44.9 - CHRONIC OBSTRUCTIVE PULMONARY DISEASE, UNSPECIFIED SNOMED Code(s): 47489850 Comment: Pt admitted with acute on chronic hypoxic and hypercarbic respiratory failure secondary to COPD and pneumonia. His breath sounds are tight currently but he does not seem to be in exacerbation. Continue nebs. (4) Cardiomyopathy Current Visit: Yes Status: Acute Code(s): I42.9 - CARDIOMYOPATHY, UNSPECIFIED SNOMED Code(s): 87254022 Comment: Pt with EF of 15-20%. ? "stunned myocardium" from polymorphic VT arrest vs secondary to EtOH use. Catheterization reveals "clean" coronary arteries. Continue captopril, thiamine and folate. He will need follow up with cardiology as an outpatient. (5) BPH (benign prostatic hyperplasia) Current Visit: Yes Status: Acute Code(s): N40.0 - BENIGN PROSTATIC HYPERPLASIA WITHOUT LOWER URINRY TRACT SYMP SNOMED Code(s): 479961039 Comment: No reported issues with urination. Continue flomax and oxybutynin. (6) DVT prophylaxis Current Visit: Yes Status: Acute Code(s): Z29.9 - ENCOUNTER FOR PROPHYLACTIC MEASURES, UNSPECIFIED SNOMED Code(s): 467415077 Comment: Lovenox (7) Full code status Current Visit: Yes Status: Acute Code(s): Z78.9 - OTHER SPECIFIED HEALTH STATUS SNOMED Code(s): 549933667 Status and Disposition: .
[2020-01-15] MEDS: Tamsulosin CAP* 0.4 MG PO SCH (17:46)
[2020-01-15] MEDS: Enoxaparin(*) 40 MG/0.4 ML SYR SUBCUT SCH (17:47)
[2020-01-15] MEDS: Melatonin 3 MG TAB PO PRN (20:39)
[2020-01-15] MEDS: Acetaminophen TAB* 325 MG PO PRN (20:40)
[2020-01-16] MEDS: Albuterol/Ipratropium NEB.SOL* Albuterol 2.5 MG/Ipratropium 0.5 MG 3 ML INH PRN (04:25)
[2020-01-16] MEDS: Sucralfate TAB* 1 GM PO SCH (07:37)
[2020-01-16] MEDS: SPIRIVA Respimat* (tiotropium) 2.5 mcg/inh Inhaler INH SCH (08:26)
[2020-01-16] MEDS ORDERED: Magnesium Oxide TAB* 400 MG PO SCH (09:00)
[2020-01-16] MEDS ORDERED: Metoprolol Succinate XL TAB* 25 MG PO SCH (09:00)
[2020-01-16] MEDS: Magnesium Hydroxide LIQ* 30 ML UDC PO SCH (09:14)
[2020-01-16] MEDS: Oxybutynin XL TAB* 5 MG PO SCH (09:21)
[2020-01-16] MEDS: Docusate CAP* 100 MG PO SCH (09:21)
[2020-01-16] MEDS: oxyCODONE TAB* 5 MG TAB PO PRN (09:21)
[2020-01-16] MEDS: Thiamine TAB* 100 MG TAB PO SCH (09:21)
[2020-01-16] MEDS: Multivitamins/Minerals TAB PO SCH (09:22)
[2020-01-16] MEDS: CAPTopril TAB* 12.5 MG TAB PO SCH (09:22)
[2020-01-16] MEDS: Folic Acid TAB* 1 MG PO SCH (09:22)
[2020-01-16] MEDS: Calcium Carbonate CHEW TAB* 500 MG (TUMS) PO SCH (09:22)
[2020-01-16] MEDS: Senna TAB 8.6 mg* TAB PO SCH (09:22)
[2020-01-16] MEDS: Potassium Chloride* LIQUID 20 MEQ/15 ML UDC PO SCH (09:23)
--- NOTE | 2020-01-16 10:02 | DS ---
CC: Dr. Justin Little; Dr. Desi Keith * DATE OF ADMISSION: 01/08/2020. DATE OF DISCHARGE: 01/16/2020. PRIMARY CARE PHYSICIAN: Dr. Justin Little. CURB MACHINE OPERATOR: Dr. Desi Keith. PRINCIPAL DIAGNOSES: 1. Acute hypercarbic respiratory failure secondary to pneumonia and COPD. 2. 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 3. Nonischemic cardiomyopathy - unclear, new versus old. DISCHARGE MEDICATIONS: 1. Tylenol 1,000 mg p.o. t.i.d. prn pain. 2. Albuterol two puffs inhaled q.4 hours prn shortness of breath. 3. Baclofen 10 mg p.o. t.i.d. prn spasm. 4. Tums 1,000 mg p.o. 4 times daily. 5. Captopril 6.25 mg p.o. t.i.d. 6. Mucinex DM one tab p.o. q.12 hours. 7. DuoNeb one inhaled 4 times daily. 8. Lidocaine applied topically q.a.m. 9. Milk of Magnesia 30 ml p.o. b.i.d. prn constipation. 10. Magnesium Oxide 400 mg p.o. daily. 11. Melatonin 3 mg p.o. at bedtime. 12. Metoprolol XL 12.5 mg p.o. daily. 13. Multivitamin one tab p.o. daily. 14. Omeprazole 20 mg p.o. b.i.d. 15. Oxybutynin 5 mg p.o. daily. 16. Oxycodone 10 mg p.o. q.6 hours prn pain. 17. MiraLax 17 gm p.o. daily prn constipation. 18. Potassium Chloride 20 mEq p.o. daily. 19. Senna Plus two tabs p.o. daily. 20. Carafate 1 gm p.o. a.c., at bedtime. 21. Flomax 0.8 mg p.o. q.p.m. 22. Thiamine 100 mg p.o. daily. 23. Incruse Ellipta one puff inhaled daily. HOSPITAL COURSE: Mr. Jane is a 74-year-old male who presented to the emergency room on 01/08/2020 for worsening shortness of breath and altered mental status. The patient had been discharged from [facility] on 01/03/2020 after sustaining a fall with multiple rib fractures. He had been doing well until the early childhood special educator of January 07 when he began to complain of feeling poorly. He had been diagnosed with pneumonia just two days before this. Approximately 10:00 a.m. on January 07, he started to have declining mental status and by 1:00 p.m. he was unresponsive. There was concern for hyponatremia and after he was given clysis 1 liter fluid bolus via clysis prior to his presentation to the emergency room. In the ER, the patient was found to have a PCO2 of 102 with a chest x-ray with possible left lower lobe infiltrate. He was subsequently intubated. The patient following his admission was noted to have a prolonged QT interval and polymorphic VT arrest. Echocardiogram revealed severe biventricular cardiomyopathy of an uncertain duration. It was felt that the polymorphic ventricular tachycardia and prolonged QT interval was likely secondary to the combination of Azithromycin and Reglan which he was [facility]. The patient ultimately went for cardiac catheterization on 01/14/2020. This revealed no significant obstructive coronary artery disease. The patient is felt to have a nonischemic cardiomyopathy of unclear duration. Given his polymorphic VT arrest and severely reduced ejection fraction of 15 to 20 percent, the decision was made to discharge the patient back to [facility] with a LifeVest. The patient has been fitted for a LifeVest with the [employer] sales representative. He has received education on this and agrees to wear this all the time. The patient is to follow-up with Dr. Keiht on 01/25/2020 at 8:30 a.m. In terms of the acute hypercarbic respiratory failure, the patient was able to be weaned from the mechanical ventilator relatively easily. He has completed treated for possible left lower lobe pneumonia. He does not have any wheezing on exam; however, he has had intermittent tight breath sounds. He will continue with his usual inhaler and nebulizer regimen. The patient was ruled out for influenza and COVID-19. The patient will resume all of his usual home medications on discharge. New medications for this patient include Captopril 6.25 mg three times daily, Metoprolol XL 12.5 mg daily, magnesium oxide 400 mg daily, and potassium chloride 20 mEq p.o. daily. On the day of discharge, the patient is awake, alert, and oriented, sitting up in bed, in no acute distress. He states that he is ready to get back to doing rehab and ultimately get home. His cardiac exam reveals normal S1, S2 with a regular rate and rhythm. He has no longer extremity edema. Lungs are mildly diminished at the bases, but otherwise clear. There is good air movement. Abdomen is soft, nontender, nondistended. There is no cyanosis or clubbing of the digits. FOLLOW-UP CONCERNS: The patient is being discharged to [facility] today, 01/16/2020. ACTIVITY LEVEL: As tolerated and per post cath instructions. CONDITION ON DISCHARGE: Improved and stable. DIET: Heart-healthy. The patient is to wear his LifeVest at all times, except for a quick shower. He is to have a basic metabolic panel and a magnesium level obtained on 2019. Daily weights are to be obtained at least until his follow-up appointment with Dr. Keith on 01/25/2020. TIME SPENT: Forty minutes were spent discharging this patient. [id number]/[facility] #: [id number] MTDD
[2020-01-16 11:35] VITALS: BP 121/70
== END 2020-01-16 13:00 | DRG 871 ==
LOC: ED 14:56 → ICU 15:56 → MEDTELE 01-12 13:55
PROVIDERS: ADMIT Internal Medicine Critical Care Medicine; ATTEND Hospitalist
PROC: 0BH17EZ Insertion of Endotracheal Airway into Trachea, Via Natural or Artificial Opening (ICD-10-PCS; principal; 2020-01-08)
PROC: 5A1945Z Respiratory Ventilation, 24-96 Consecutive Hours (ICD-10-PCS; 2020-01-08)
PROC: 05HN33Z Insertion of Infusion Device into Left Internal Jugular Vein, Percutaneous Approach (ICD-10-PCS; 2020-01-09)
PROC: 3E033XZ Introduction of Vasopressor into Peripheral Vein, Percutaneous Approach (ICD-10-PCS; 2020-01-09)
PROC: B2111ZZ Fluoroscopy of Multiple Coronary Arteries using Low Osmolar Contrast (ICD-10-PCS; 2020-01-14)
DX: A41.9 Sepsis, unspecified organism (principal); J18.9 Pneumonia, unspecified organism; J96.01 Acute respiratory failure with hypoxia; J96.02 Acute respiratory failure with hypercapnia; I49.01 Ventricular fibrillation; J44.0 Chronic obstructive pulmonary disease with (acute) lower respiratory infection; I42.8 Other cardiomyopathies; I47.2 Ventricular tachycardia; M84.48XA Pathological fracture, other site, initial encounter for fracture; E87.0 Hyperosmolality and hypernatremia; N40.0 Benign prostatic hyperplasia without lower urinary tract symptoms; R94.31 Abnormal electrocardiogram [ECG] [EKG]; T36.3X5A Adverse effect of macrolides, initial encounter; I10 Essential (primary) hypertension; T45.0X5A Adverse effect of antiallergic and antiemetic drugs, initial encounter; G47.33 Obstructive sleep apnea (adult) (pediatric); K22.70 Barrett's esophagus without dysplasia; K21.9 Gastro-esophageal reflux disease without esophagitis; L40.9 Psoriasis, unspecified; K59.09 Other constipation; I27.20 Pulmonary hypertension, unspecified; F17.210 Nicotine dependence, cigarettes, uncomplicated; E83.51 Hypocalcemia; Z99.81 Dependence on supplemental oxygen; Y92.9 Unspecified place or not applicable; Z79.899 Other long term (current) drug therapy
CPT/HCPCS: 36415; 71045; 80048; 80053; 81003; 81015; 82330; 82803; 83605; 83735; 83880; 84439; 84443; 84484; 85025; 86140; 87040; 87641; 93005; 93306; 93308; 93454; 94002; 94003; 94640; 96361; 96374; 99156; 99157; 99285; A9270-GY; J0171; J0282; J0461; J0610; J0692; J1250; J1265; J1644; J1650; J1940; J2060; J2250; J2704; J2920; J3010; J3411; J3475; J3480; J3535; U0002

== ENCOUNTER 2021-03-12 15:41 | Inpatient (IN) ==
[2021-03-12] MEDS ORDERED: fentaNYL 100 mcg/2 ml 50 MCG/ML VIAL ONE (15:58)
[2021-03-12] MEDS ORDERED: fentaNYL 100 mcg/2 ml 50 MCG/ML VIAL IV SLOW PU ONE ×2 (16:01→16:51)
[2021-03-12] MEDS ORDERED: Lidocaine 2% PF 5 ML VIAL ONE (16:42)
[2021-03-12] MEDS: Chlorhexidine MOUTHWASH 0.12% 15 ML UDC SWISH SPIT SCH ×2 (17:46→20:59)
[2021-03-12] MEDS: Pantoprazole VIAL 40 MG VIAL IV SCH (17:46)
[2021-03-12 18:07] LABS: Albumin 2.5 g/dL (3.2-5.2); Albumin/Globulin Ratio 1.2 (1-3); Calcium 7.4 mg/dL (8.6-10.3); EGFR African American 13.2 (>60); EGFR Non-African American 10.9 (>60); Globulin 2.1 g/dL (2-4); Magnesium 2.3 mg/dL (1.9-2.7); Phosphorus 4.6 mg/dL (2.5-5.0); Potassium 4.3 mmol/L (3.5-5.0); Total Bilirubin 0.5 mg/dL (0.2-1.0); Total Protein 4.6 g/dL (6.4-8.9)
[2021-03-12 18:09] LABS: ABS Lymphocytes 0.1 10^3/ul (1.0-4.8); ABS Monocytes 0.2 10^3/ul (0-0.8); ABS Neutrophils 19.1 10^3/ul (1.5-7.7); Hematocrit 33 % (42-52); Hemoglobin 10.6 g/dL (14.0-18.0); Lymphocyte % 0.4 %; Mean Corpuscular HGB Conc 32 g/dL (31-36); Mean Corpuscular Hemoglobin 32 pg (27-31); Mean Corpuscular Volume 99 fL (80-94); Red Blood Count 3.31 10^6 /uL (4.18-5.48); Red Cell Distribution Width 14 % (10-15); White Blood Count 19.4 10^3/uL (3.5-10.8)
[2021-03-12 18:11] LABS: Activated Partial Thrombo Time 22.1 seconds (26.0-38.0); INR 1.31 (0.82-1.09)
[2021-03-12] MEDS ORDERED: Magnesium Hydroxide LIQ 30 ML UDC PO PRN (18:24)
[2021-03-12] MEDS ORDERED: Senna TAB 8.6 mg TAB PO PRN (18:24)
[2021-03-12 18:32] LABS: Platelet Count Platelets clumped. 10^3/uL (150-450)
[2021-03-12] MEDS: MEROPENEM 500 MG IV SCH (18:43)
[2021-03-12 18:57] LABS: Mean Platelet Volume 9.5 fL (7.4-10.4); Platelet Count 135 10^3/uL (150-450)
[2021-03-12] MEDS: Albuterol/Ipratropium NEB.SOL (2.5/0.5 MG) 3 ML NEB.SOLN INH SCH ×2 (19:19→23:34)
[2021-03-12 19:59] LABS: Urine Appearance Cloudy; Urine Bilirubin Negative (Negative); Urine Blood 3+ (Negative); Urine Color Amber; Urine Glucose 1+(50 mg/dL) (Negative); Urine Ketones Negative (Negative); Urine Nitrite Negative (Negative); Urine Protein 2+(100 mg/dL) (Negative); Urine Specific Gravity 1.016 (1.002-1.030); Urine Urobilinogen Negative (Negative)
[2021-03-12 20:13] LABS: TSH Ultra Thyroid Stim Horm 4.56 mcIU/mL (0.34-5.60)
[2021-03-12 20:16] LABS: Urine Bacteria 1+ (Absent); Urine Red Blood Cell 3+(>10/hpf) (Absent); Urine Squamous Epithelial Cell Present (Absent); Urine White Blood Cell 2+(11-20/hpf) (Absent)
[2021-03-12] MEDS: Nystatin TOP POWDER 15 GM BTL TOPICAL SCH (20:58)
[2021-03-12] MEDS: Heparin 5000 UNITS/ML 1 mL VIAL SUBCUT SCH (20:59)
[2021-03-13] MEDS: Chlorhexidine MOUTHWASH 0.12% 15 ML UDC SWISH SPIT SCH ×6 (00:34→21:03)
[2021-03-13] MEDS: Albuterol/Ipratropium NEB.SOL (2.5/0.5 MG) 3 ML NEB.SOLN INH SCH ×6 (03:57→23:45)
[2021-03-13 04:42] LABS: Hematocrit 32 % (42-52); Hemoglobin 10.5 g/dL (14.0-18.0); Mean Corpuscular HGB Conc 33 g/dL (31-36); Mean Corpuscular Hemoglobin 32 pg (27-31); Mean Corpuscular Volume 98 fL (80-94); Mean Platelet Volume 9.5 fL (7.4-10.4); Platelet Count 157 10^3/uL (150-450); Red Cell Distribution Width 14 % (10-15); White Blood Count 21.7 10^3/uL (3.5-10.8)
[2021-03-13 05:00] LABS: Calcium 7.4 mg/dL (8.6-10.3); EGFR African American 11.7 (>60); EGFR Non-African American 9.7 (>60); Magnesium 2.4 mg/dL (1.9-2.7); Phosphorus 5.2 mg/dL (2.5-5.0); Potassium 4.1 mmol/L (3.5-5.0)
[2021-03-13 05:22] LABS: ABS Basophils 0.1 10^3/ul (0-0.2); ABS Lymphocytes 0.6 10^3/ul (1.0-4.8); ABS Monocytes 0.9 10^3/ul (0-0.8); ABS Neutrophils 20.1 10^3/ul (1.5-7.7); Eosinophil % 0.1 %; Lymphocyte % 2.6 %
[2021-03-13] MEDS: Heparin 5000 UNITS/ML 1 mL VIAL SUBCUT SCH ×3 (05:44→21:03)
[2021-03-13] MEDS: Nystatin TOP POWDER 15 GM BTL TOPICAL SCH ×3 (08:37→20:52)
[2021-03-13] MEDS: Docusate LIQ 100 MG/10 ML UDC PO SCH (08:37)
[2021-03-13] MEDS: Pantoprazole VIAL 40 MG VIAL IV SCH (08:37)
[2021-03-13] MEDS ORDERED: Heparin *DIALYSIS* ONLY 1,000 UNITS/ML VIAL DIALYSIS ONE (09:36)
[2021-03-13] MEDS: fentaNYL 100 mcg/2 ml 50 MCG/ML VIAL IV SLOW PU PRN ×2 (10:49→23:13)
[2021-03-13] MEDS: Heparin 1,000 UNIT/ML 10 ml (10,000 UNITS) CATHLAB/DIALYSIS DIALYSIS ONE ×5 (12:32→16:50)
[2021-03-13] MEDS ORDERED: fentaNYL 100 mcg/2 ml 50 MCG/ML VIAL IV SLOW PU PRN (20:03)
[2021-03-13] MEDS: MEROPENEM 500 MG IV SCH (20:53)
[2021-03-14] MEDS ORDERED: Midazolam 5 mg/5 ml VIAL 1 mg/ml 5 ml VIAL (5 mg) IV SLOW PU ONE (00:18)
[2021-03-14] MEDS: Chlorhexidine MOUTHWASH 0.12% 15 ML UDC SWISH SPIT SCH ×4 (00:46→14:57)
[2021-03-14 01:57] LABS: Hematocrit 29 % (42-52); Hemoglobin 9.6 g/dL (14.0-18.0); Mean Corpuscular HGB Conc 33 g/dL (31-36); Mean Corpuscular Hemoglobin 32 pg (27-31); Mean Corpuscular Volume 97 fL (80-94); Mean Platelet Volume 9.5 fL (7.4-10.4); Platelet Count 153 10^3/uL (150-450); Red Blood Count 2.98 10^6 /uL (4.18-5.48); Red Cell Distribution Width 14 % (10-15)
[2021-03-14 01:58] LABS: ABS Lymphocytes 0.3 10^3/ul (1.0-4.8); ABS Monocytes 0.8 10^3/ul (0-0.8); ABS Neutrophils 15.9 10^3/ul (1.5-7.7); Eosinophil % 0.1 %; Lymphocyte % 1.6 %
[2021-03-14] MEDS ORDERED: Dexmedetomidine 1,000 MCG in NS 0.9% 250 ml 240 ML IV SCH (02:00)
[2021-03-14 02:49] LABS: Calcium 7.3 mg/dL (8.6-10.3); EGFR African American 15.3 (>60); EGFR Non-African American 12.7 (>60); Magnesium 2.1 mg/dL (1.9-2.7); Phosphorus 5.7 mg/dL (2.5-5.0); Potassium 4.1 mmol/L (3.5-5.0)
[2021-03-14] MEDS: Albuterol/Ipratropium NEB.SOL (2.5/0.5 MG) 3 ML NEB.SOLN INH SCH ×6 (03:28→22:53)
[2021-03-14] MEDS: Heparin 5000 UNITS/ML 1 mL VIAL SUBCUT SCH ×3 (05:46→20:57)
[2021-03-14 06:27] LABS: Hepatitis B Surface Antigen Nonreactive (Nonreactive)
[2021-03-14 06:45] LABS: Hepatitis B Surface Ab Not Immune (Immune)
[2021-03-14] MEDS: Nystatin TOP POWDER 15 GM BTL TOPICAL SCH ×3 (08:06→20:57)
[2021-03-14] MEDS: Pantoprazole VIAL 40 MG VIAL IV SCH (08:06)
[2021-03-14] MEDS: Docusate LIQ 100 MG/10 ML UDC PO SCH (08:07)
[2021-03-14] MEDS ORDERED: Lidocaine 2% PF 5 ML VIAL ONE (08:53)
[2021-03-14] MEDS ORDERED: Succinylcholine 200 mg VIAL 20 mg/ml 10 ml VIAL (200 mg) ONE (12:16)
[2021-03-14] MEDS: MEROPENEM 500 MG IV SCH (21:16)
[2021-03-14] MEDS: Bacitracin OINTMENT TUBE TOPICAL SCH (22:30)
[2021-03-15] MEDS: Albuterol/Ipratropium NEB.SOL (2.5/0.5 MG) 3 ML NEB.SOLN INH SCH ×6 (03:05→23:17)
[2021-03-15 06:06] LABS: Hematocrit 32 % (42-52); Hemoglobin 10.6 g/dL (14.0-18.0); Mean Corpuscular HGB Conc 33 g/dL (31-36); Mean Corpuscular Hemoglobin 32 pg (27-31); Mean Corpuscular Volume 98 fL (80-94); Mean Platelet Volume 9.5 fL (7.4-10.4); Platelet Count 199 10^3/uL (150-450); Red Blood Count 3.29 10^6 /uL (4.18-5.48); Red Cell Distribution Width 13 % (10-15); White Blood Count 23.3 10^3/uL (3.5-10.8)
[2021-03-15 06:18] LABS: Calcium 7.8 mg/dL (8.6-10.3); EGFR Non-African American 9.1 (>60); Potassium 4.8 mmol/L (3.5-5.0)
[2021-03-15] MEDS: Heparin 5000 UNITS/ML 1 mL VIAL SUBCUT SCH (06:27)
[2021-03-15 06:29] LABS: ABS Lymphocytes 0.4 10^3/ul (1.0-4.8); ABS Monocytes 1.1 10^3/ul (0-0.8); ABS Neutrophils 21.8 10^3/ul (1.5-7.7); Eosinophil % 0.1 %; Lymphocyte % 1.7 %
[2021-03-15 08:06] LABS: Magnesium 2.6 mg/dL (1.9-2.7); Phosphorus 8.4 mg/dL (2.5-5.0)
[2021-03-15] MEDS: Pantoprazole VIAL 40 MG VIAL IV SCH (08:16)
[2021-03-15] MEDS: Nystatin TOP POWDER 15 GM BTL TOPICAL SCH ×2 (08:16→15:43)
[2021-03-15] MEDS: Bacitracin OINTMENT TUBE TOPICAL SCH ×3 (08:16→21:33)
[2021-03-15] MEDS: Docusate LIQ 100 MG/10 ML UDC PO SCH (09:31)
[2021-03-15] MEDS ORDERED: Simethicone SUSP ORALSYR 66.66 MG/ML PO PRN (10:31)
[2021-03-15] MEDS: MEROPENEM 500 MG IV SCH (21:09)
[2021-03-16] MEDS: Albuterol/Ipratropium NEB.SOL (2.5/0.5 MG) 3 ML NEB.SOLN INH SCH ×6 (03:35→22:58)
[2021-03-16 04:02] LABS: Hematocrit 31 % (42-52); Mean Corpuscular HGB Conc 32 g/dL (31-36); Mean Corpuscular Hemoglobin 32 pg (27-31); Mean Corpuscular Volume 98 fL (80-94); Mean Platelet Volume 9.5 fL (7.4-10.4); Platelet Count 209 10^3/uL (150-450); Red Blood Count 3.15 10^6 /uL (4.18-5.48); Red Cell Distribution Width 13 % (10-15); White Blood Count 19.6 10^3/uL (3.5-10.8)
[2021-03-16 04:06] LABS: INR 1.2 (0.82-1.09)
[2021-03-16 04:15] LABS: Calcium 7.3 mg/dL (8.6-10.3); Magnesium 2.8 mg/dL (1.9-2.7)
[2021-03-16 04:19] LABS: Potassium 5.6 mmol/L (3.5-5.0)
[2021-03-16 04:21] LABS: EGFR African American 9.3 (>60); EGFR Non-African American 7.7 (>60); Phosphorus 10.6 mg/dL (2.5-5.0)
[2021-03-16] MEDS: Bacitracin OINTMENT TUBE TOPICAL SCH ×3 (08:03→22:30)
[2021-03-16] MEDS: Heparin 1,000 UNIT/ML 10 ml (10,000 UNITS) CATHLAB/DIALYSIS DIALYSIS SCH ×2 (08:32→13:10)
[2021-03-16] MEDS ORDERED: Albumin Human 25% 12.5 GM/50 ML BTL IV ONE (10:06)
[2021-03-16] MEDS ORDERED: Norepinephrine 16MCG/ML IVPRE 4,000 MCG/250 ML BAG IV ONE (10:08)
[2021-03-16] MEDS: Norepinephrine 16MCG/ML IVPRE 4,000 MCG/250 ML BAG IV SCH (10:13)
[2021-03-16] MEDS: Pantoprazole VIAL 40 MG VIAL IV SCH (14:09)
[2021-03-16] MEDS: Docusate LIQ 100 MG/10 ML UDC PO SCH (14:09)
[2021-03-16 14:37] LABS: Calcium 7.8 mg/dL (8.6-10.3); EGFR African American 20.1 (>60); EGFR Non-African American 16.7 (>60); Potassium 4.2 mmol/L (3.5-5.0)
[2021-03-16] MEDS: MEROPENEM 500 MG IV SCH (22:30)
[2021-03-17] MEDS: Albuterol/Ipratropium NEB.SOL (2.5/0.5 MG) 3 ML NEB.SOLN INH SCH ×6 (02:29→23:46)
[2021-03-17 06:59] LABS: Calcium 7.4 mg/dL (8.6-10.3); EGFR African American 14.4 (>60); EGFR Non-African American 11.9 (>60); Magnesium 2.3 mg/dL (1.9-2.7); Phosphorus 6.6 mg/dL (2.5-5.0); Potassium 4.3 mmol/L (3.5-5.0)
[2021-03-17 07:46] LABS: Hematocrit 25 % (42-52); Hemoglobin 8.2 g/dL (14.0-18.0); Mean Corpuscular HGB Conc 33 g/dL (31-36); Mean Corpuscular Hemoglobin 32 pg (27-31); Mean Corpuscular Volume 97 fL (80-94); Mean Platelet Volume 9.4 fL (7.4-10.4); Platelet Count 157 10^3/uL (150-450); Red Blood Count 2.55 10^6 /uL (4.18-5.48); Red Cell Distribution Width 13 % (10-15); White Blood Count 11.1 10^3/uL (3.5-10.8)
[2021-03-17] MEDS: Bacitracin OINTMENT TUBE TOPICAL SCH ×3 (09:10→21:19)
[2021-03-17] MEDS: Heparin 1,000 UNIT/ML 10 ml (10,000 UNITS) CATHLAB/DIALYSIS DIALYSIS SCH ×4 (10:58→14:57)
[2021-03-17] MEDS: Docusate LIQ 100 MG/10 ML UDC PO SCH (14:52)
[2021-03-17] MEDS: Pantoprazole VIAL 40 MG VIAL IV SCH (14:52)
[2021-03-17] MEDS: MEROPENEM 500 MG IV SCH (21:39)
[2021-03-18] MEDS: Albuterol/Ipratropium NEB.SOL (2.5/0.5 MG) 3 ML NEB.SOLN INH SCH ×2 (03:36→07:39)
[2021-03-18] MEDS: Norepinephrine 16MCG/ML IVPRE 4,000 MCG/250 ML BAG IV SCH ×3 (04:15→18:41)
[2021-03-18 04:41] LABS: Hematocrit 29 % (42-52); Hemoglobin 9.3 g/dL (14.0-18.0); Mean Corpuscular HGB Conc 32 g/dL (31-36); Mean Corpuscular Hemoglobin 31 pg (27-31); Mean Corpuscular Volume 98 fL (80-94); Mean Platelet Volume 8.6 fL (7.4-10.4); Platelet Count 251 10^3/uL (150-450); Red Blood Count 2.99 10^6 /uL (4.18-5.48); Red Cell Distribution Width 13 % (10-15); White Blood Count 19.7 10^3/uL (3.5-10.8)
[2021-03-18 05:40] LABS: Calcium 7.7 mg/dL (8.6-10.3); Magnesium 2.4 mg/dL (1.9-2.7)
[2021-03-18 05:46] LABS: EGFR African American 19.6 (>60); EGFR Non-African American 16.2 (>60); Phosphorus 7.4 mg/dL (2.5-5.0)
[2021-03-18] MEDS: Docusate LIQ 100 MG/10 ML UDC PO SCH (07:36)
[2021-03-18] MEDS ORDERED: Rocuronium 50 mg VIAL 10 mg/ml 5 ml VIAL (50 mg) ONE ×2 (08:06→08:09)
[2021-03-18] MEDS ORDERED: Propofol 10 mg/ml 100 ML BTL 0 ML ONE (08:10)
[2021-03-18] MEDS ORDERED: Etomidate 40 mg/20 ml (2 MG/ML) 20 ml VIAL (40 mg) ONE (08:21)
[2021-03-18] MEDS ORDERED: Norepinephrine 16MCG/ML IVPRE (4 MG/250 ML) in NS 0.9% IV ONE (08:35)
[2021-03-18] MEDS ORDERED: EPINEPHrine SYR 0.1MG/ML 10 ml SYRINGE ONE (08:35)
[2021-03-18] MEDS: Bacitracin OINTMENT TUBE TOPICAL SCH ×3 (09:16→21:10)
[2021-03-18] MEDS: Heparin 1,000 UNIT/ML 10 ml (10,000 UNITS) CATHLAB/DIALYSIS DIALYSIS SCH (09:28)
[2021-03-18] MEDS ORDERED: Albuterol/Ipratropium NEB.SOL (2.5/0.5 MG) 3 ML NEB.SOLN INH PRN (09:51)
[2021-03-18] MEDS ORDERED: Acetylcysteine INHALATION SOL 200 MG/ML NEB.SOLN 10 ML INH SCH (10:00)
[2021-03-18] MEDS: Pantoprazole VIAL 40 MG VIAL IV SCH (10:43)
[2021-03-18] MEDS: Acetylcysteine INHALATION SOL 200 MG/ML NEB.SOLN 10 ML INH SCH ×2 (10:46→19:26)
[2021-03-18] MEDS: fentaNYL 100 mcg/2 ml 50 MCG/ML VIAL IV SLOW PU PRN (11:33)
[2021-03-18] MEDS ORDERED: Chlorhexidine MOUTHWASH 0.12% 15 ML UDC SWISH SPIT SCH (14:00)
[2021-03-18 16:32] LABS: Anion Gap 9 mmol/L (2-11); Blood Urea Nitrogen 47 mg/dL (6-24); CO2 Carbon Dioxide 25 mmol/L (22-32); Calcium 7.6 mg/dL (8.6-10.3); Chloride 103 mmol/L (101-111); EGFR African American 20.1 (>60); EGFR Non-African American 16.6 (>60); Glucose 109 mg/dL (70-100); Potassium 4.7 mmol/L (3.5-5.0); Sodium 137 mmol/L (135-145)
[2021-03-18 17:13] LABS: Troponin I 0.54 ng/mL (<0.03)
[2021-03-18] MEDS: Chlorhexidine MOUTHWASH 0.12% 15 ML UDC SWISH SPIT SCH (21:09)
[2021-03-19] MEDS ORDERED: Piperacillin/Tazobac ADVAN 3.375 GM in NS 0.9% 100 ml BAG 100 ML IV ONE (00:23)
[2021-03-19] MEDS: Chlorhexidine MOUTHWASH 0.12% 15 ML UDC SWISH SPIT SCH ×7 (00:27→23:43)
[2021-03-19] MEDS ORDERED: NS 0.9% 100 ml BAG 100 ML ONE (00:30)
[2021-03-19] MEDS ORDERED: Zosyn per Pharmacy NOTE FOLLOW UP SCH (01:00)
[2021-03-19 05:47] LABS: Calcium 7.7 mg/dL (8.6-10.3); EGFR Non-African American 12.4 (>60); Magnesium 2.3 mg/dL (1.9-2.7); Potassium 4.6 mmol/L (3.5-5.0)
[2021-03-19 06:17] LABS: ABS Lymphocytes 0.5 10^3/ul (1.0-4.8); ABS Monocytes 1.1 10^3/ul (0-0.8); ABS Neutrophils 13.5 10^3/ul (1.5-7.7); Eosinophil % 0.2 %; Hematocrit 25 % (42-52); Hemoglobin 8.2 g/dL (14.0-18.0); Lymphocyte % 3.2 %; Mean Corpuscular HGB Conc 33 g/dL (31-36); Mean Corpuscular Hemoglobin 32 pg (27-31); Mean Corpuscular Volume 97 fL (80-94); Mean Platelet Volume 8.7 fL (7.4-10.4); Platelet Count 165 10^3/uL (150-450); Red Blood Count 2.54 10^6 /uL (4.18-5.48); Red Cell Distribution Width 13 % (10-15); White Blood Count 15.1 10^3/uL (3.5-10.8)
[2021-03-19] MEDS: ZOSYN 3.375 GM Q12H per EXTENDED INFUSION IV SCH ×2 (06:32→18:17)
[2021-03-19] MEDS: Acetylcysteine INHALATION SOL 200 MG/ML NEB.SOLN 10 ML INH SCH ×3 (07:40→19:36)
[2021-03-19] MEDS: Docusate LIQ 100 MG/10 ML UDC PO SCH (08:22)
[2021-03-19] MEDS: Pantoprazole VIAL 40 MG VIAL IV SCH (08:22)
[2021-03-19] MEDS: Bacitracin OINTMENT TUBE TOPICAL SCH ×3 (08:23→21:09)
[2021-03-19] MEDS: Heparin 1,000 UNIT/ML 10 ml (10,000 UNITS) CATHLAB/DIALYSIS DIALYSIS SCH ×5 (08:23→14:04)
[2021-03-19] MEDS: fentaNYL 100 mcg/2 ml 50 MCG/ML VIAL IV SLOW PU PRN ×3 (10:38→21:09)
[2021-03-19] MEDS: Norepinephrine 16MCG/ML IVPRE 4,000 MCG/250 ML BAG IV SCH (13:50)
[2021-03-20] MEDS: fentaNYL 100 mcg/2 ml 50 MCG/ML VIAL IV SLOW PU PRN ×2 (00:56→09:40)
[2021-03-20] MEDS: Chlorhexidine MOUTHWASH 0.12% 15 ML UDC SWISH SPIT SCH ×3 (03:06→12:46)
[2021-03-20] MEDS: Norepinephrine 16MCG/ML IVPRE 4,000 MCG/250 ML BAG IV SCH (03:07)
[2021-03-20 04:46] LABS: ABS Basophils 0.1 10^3/ul (0-0.2); ABS Eosinophils 0.1 10^3/ul (0-0.6); ABS Lymphocytes 0.6 10^3/ul (1.0-4.8); ABS Monocytes 1.1 10^3/ul (0-0.8); ABS Neutrophils 15.2 10^3/ul (1.5-7.7); Eosinophil % 0.5 %; Hematocrit 24 % (42-52); Hemoglobin 7.9 g/dL (14.0-18.0); Lymphocyte % 3.7 %; Mean Corpuscular HGB Conc 34 g/dL (31-36); Mean Corpuscular Hemoglobin 32 pg (27-31); Mean Corpuscular Volume 96 fL (80-94); Mean Platelet Volume 8.5 fL (7.4-10.4); Platelet Count 204 10^3/uL (150-450); Red Blood Count 2.46 10^6 /uL (4.18-5.48); Red Cell Distribution Width 13 % (10-15); White Blood Count 17.1 10^3/uL (3.5-10.8)
[2021-03-20 05:05] LABS: Calcium 7.8 mg/dL (8.6-10.3); EGFR African American 19.4 (>60); Potassium 3.8 mmol/L (3.5-5.0)
[2021-03-20] MEDS ORDERED: NS 0.9% 100 ml BAG 100 ML ONE (05:57)
[2021-03-20] MEDS: ZOSYN 3.375 GM Q12H per EXTENDED INFUSION IV SCH (06:03)
[2021-03-20] MEDS: Acetylcysteine INHALATION SOL 200 MG/ML NEB.SOLN 10 ML INH SCH (07:43)
[2021-03-20] MEDS: Docusate LIQ 100 MG/10 ML UDC PO SCH (09:02)
[2021-03-20] MEDS: Heparin 1,000 UNIT/ML 10 ml (10,000 UNITS) CATHLAB/DIALYSIS DIALYSIS SCH (09:26)
[2021-03-20] MEDS: Pantoprazole VIAL 40 MG VIAL IV SCH (09:40)
[2021-03-20] MEDS: Bacitracin OINTMENT TUBE TOPICAL SCH ×2 (09:40→15:04)
[2021-03-20] MEDS ORDERED: Lorazepam PYXIS KEY PRN (14:55)
[2021-03-20] MEDS ORDERED: LORazepam 2 mg VIAL 1 ml IV PUSH PRN (14:55)
[2021-03-20] MEDS ORDERED: Atropine 1% (ORAL/SL) 15 ML BTL SL PRN (14:56)
[2021-03-20 15:46] VITALS: BP 91/46
[2021-03-23] MEDS ORDERED: Scopolamine PATCH Remove NOTE PATCH OFF SCH (15:00)
== END 2021-03-20 16:34 | disposition expired | DRG 871 ==
LOC: ICU 15:41
PROVIDERS: ADMIT Internal Medicine; ATTEND Internal Medicine